=== PATIENT | female | born 1995 | race African-American/Black ===

== ENCOUNTER 2017-06-29 11:58 | Emergency (ER) | payer MEDICAID | END 2017-06-29 13:00 | disposition left against medical advice (07) | LOC: NED 11:58 | DX: R10.9 Unspecified abdominal pain (principal); N93.9 Abnormal uterine and vaginal bleeding, unspecified; Z53.21 Procedure and treatment not carried out due to patient leaving prior to being seen by health care provider | CPT/HCPCS: 99281 ==

== ENCOUNTER 2017-07-03 13:36 | Inpatient (IN) | payer MEDICAID, OTHER ==
[~2017-07-03] VITALS: Ht 162.6 cm; Wt 78.5 kg
[2017-07-03 13:44] VITALS: BP 104/59; PULSE 62; RESP 16; TEMP 98.9; O2SAT 100
[2017-07-03] MEDS ORDERED: SODIUM CHLOR 0.9% 1000 ML INJ 1,000 ML IV ONE (13:57)
--- NOTE | 2017-07-03 13:57 | PD ---
HPI Chief Complaint: Suicide Ideation/Attempt Time Seen by Provider: 13:56 Travel History International Travel<30 days: No Contact w/Intl Traveler<30days: No Traveled to known affect area: No History of Present Illness HPI 22-year-old Afro-Citizen [place] female presents the emergency department via EMS under the Luna act for reported overdose of Tylenol 500 mg. Patient reportedly took Forty 500 mg tabs at 11 AM this morning. She was found in her room somewhat obtunded. Vital signs have been stable. Patient complaining of headache. Patient's mother stated this is her second attempt at overdose. Patient has no known drug allergies. PFSH Past Medical History Medical History: Denies Significant Hx Hx Anticoagulant Therapy: No Cardiovascular Problems: No Chemotherapy: No Cerebrovascular Accident: No Diabetes: No Respiratory: No Influenza Vaccination: No ?: Not LMP: 07/03/2017 Past Surgical History Hysterectomy: No Other Surgery: Yes ( in May 2016) Social History Alcohol Use: No Tobacco Use: No Substance Use: No Allergies-Medications (Allergen,Severity, Reaction): Coded Allergies: No Known Allergies (Unverified , 07/03/17) Reported Meds & Prescriptions Reported Meds & Active Scripts Active No Active Prescriptions or Reported Medications Review of Systems Except as stated in HPI: all other systems reviewed are Neg General / Constitutional: No: Fever Eyes: No: Visual changes HENT: Positive: Headaches (patient complaining of headache.) Cardiovascular: No: Chest Pain or Discomfort Respiratory: No: Shortness of Breath Gastrointestinal: No: Abdominal Pain Genitourinary: No: Dysuria Musculoskeletal: No: Pain Skin: No Rash Neurologic: No: Weakness Psychiatric: Positive: Depression, Suicidal Ideations, No: Homicidal Ideation Endocrine: No: Polydipsia Hematologic/Lymphatic: No: Easy Bruising Physical Exam Narrative GENERAL: Patient appears in no acute distress. SKIN: Warm and dry. Normal color. Normal turgor. HEAD: Atraumatic. Normocephalic. EYES: Pupils equal and round. No scleral icterus. No injection or drainage. ENT: No nasal bleeding or discharge. Mucous membranes pink and moist. Pharynx is clear. Airway is patent. NECK: Trachea midline. Supple and nontender. CARDIOVASCULAR: Regular rate and rhythm. RESPIRATORY: No accessory muscle use. Clear to auscultation. Breath sounds equal bilaterally. GASTROINTESTINAL: Abdomen soft, non-tender, nondistended. Hepatic and splenic margins not palpable. MUSCULOSKELETAL: Extremities without clubbing, cyanosis, or edema. No obvious deformities. NEUROLOGICAL: Awake and alert. No obvious cranial nerve deficits. Motor grossly within normal limits. Five out of 5 muscle strength in the arms and legs. Normal speech. Data Data Last Documented VS Vital Signs Date Time Temp Pulse Resp B/P (MAP) Pulse Ox O2 Delivery O2 Flow Rate FiO2 07/03/17 14:27 64 15 104/59 (74) 100 Room Air 07/03/17 13:44 98.9 Orders Orders Electrocardiogram (07/03/17 ) Electrocardiogram (07/03/17 13:57) Complete Blood Count With Diff (07/03/17 13:57) Comprehensive Metabolic Panel (07/03/17 13:57) Prothrombin Time / Inr (Pt) (07/03/17 13:57) Act Partial Throm Time (Ptt) (07/03/17 13:57) Osmolality,Serum (07/03/17 13:57) Urinalysis - C+S If Indicated (07/03/17 13:57) Chest, Single Ap (07/03/17 13:57) Iv Access Insert/Monitor (07/03/17 13:57) Cath For Specimen (07/03/17 13:57) Ecg Monitoring (07/03/17 13:57) Oximetry (07/03/17 13:57) Sodium Chloride 0.9% Flush (Ns Flush) (07/03/17 14:00) Sodium Chlor 0.9% 1000 Ml Inj (Ns 1000 M (07/03/17 13:57) Call Poison Control (07/03/17 13:57) Drug Screen, Random Urine (07/03/17 13:57) Alcohol (Ethanol) (07/03/17 13:57) Salicylates (Aspirin) (07/03/17 13:57) Tylenol (Acetaminophen) (07/03/17 13:57) Ed Urine Pregnancytest Poc (07/03/17 13:57) Acetylcysteine Inj (Acetadote Inj) (07/03/17 14:15) Acetylcysteine Inj (Acetadote Inj) (07/03/17 15:15) Acetylcysteine Inj (Acetadote Inj) (07/03/17 19:15) Ondansetron Inj (Zofran Inj) (07/03/17 15:15) Beta Hcg (Quant/Titer) (07/03/17 15:36) Labs Laboratory Tests Test 07/03/17 14:06 White Blood Count 6.4 TH/MM3 Red Blood Count 4.52 MIL/MM3 Hemoglobin 11.9 GM/DL Hematocrit 36.8 % Mean Corpuscular Volume 81.5 FL Mean Corpuscular Hemoglobin 26.3 PG Mean Corpuscular Hemoglobin Concent 32.3 % Red Cell Distribution Width 14.1 % Platelet Count 272 TH/MM3 Mean Platelet Volume 8.4 FL Neutrophils (%) (Auto) 54.6 % Lymphocytes (%) (Auto) 28.1 % Monocytes (%) (Auto) 15.1 % Eosinophils (%) (Auto) 1.2 % Basophils (%) (Auto) 1.0 % Neutrophils # (Auto) 3.5 TH/MM3 Lymphocytes # (Auto) 1.8 TH/MM3 Monocytes # (Auto) 1.0 TH/MM3 Eosinophils # (Auto) 0.1 TH/MM3 Basophils # (Auto) 0.1 TH/MM3 CBC Comment DIFF FINAL Differential Comment Prothrombin Time 11.4 SEC Prothromb Time International Ratio 1.0 RATIO Activated Partial Thromboplast Time 31.5 SEC Blood Urea Nitrogen 10 MG/DL Creatinine 0.63 MG/DL Random Glucose 88 MG/DL Total Protein 6.7 GM/DL Albumin 3.4 GM/DL Calcium Level 8.2 MG/DL Alkaline Phosphatase 56 U/L Aspartate Amino Transf (AST/SGOT) 13 U/L Alanine Aminotransferase (ALT/SGPT) 13 U/L Total Bilirubin 0.4 MG/DL Sodium Level 136 MEQ/L Potassium Level 4.2 MEQ/L Chloride Level 105 MEQ/L Carbon Dioxide Level 23.9 MEQ/L Anion Gap 7 MEQ/L Estimat Glomerular Filtration Rate 144 ML/MIN Salicylates Level LESS THAN 1.7 MG/DL Acetaminophen Level 200.4 MCG/ML Ethyl Alcohol Level LESS THAN 3 MG/DL MDM Medical Decision Making Medical Screen Exam Complete: Yes Emergency Medical Condition: Yes Medical Record Reviewed: Yes Differential Diagnosis Suicidal attempt. Acetaminophen overdose. Need for psychiatric evaluation Narrative Course Patient appears medically stable at time of exam. Labs ordered including CBC, CMP, urinalysis, urine , urine tox screen, alcohol level, salicylates and acetaminophen level, serum osmolality, and arterial blood gas IV access is obtained patient is given 1000 mg normal saline bolus. Patient is started on Mucomyst IV based on her weight with a loading dose. Labs come back showing a normal CBC, normal CMP. Urine is positive although the patient states that she is currently ending her period. Serum hCG is ordered. Acetaminophen level is elevated at 200.4. Poison control has been called and agrees with the plan. 1500 hrs. call was placed to hospitalist for admission. Patient discussed with the residents who agreed to admit the patient to the ICU. Psych evaluation has been ordered. Diagnosis Primary Impression: Acetaminophen overdose Qualified Codes: T39.1X2A - Poisoning by 4-aminophenol derivatives, intentional self-harm, initial encounter Additional Impression: Suicidal deliberate poisoning Qualified Codes: T65.92XA - Toxic effect of unspecified substance, intentional self-harm, initial encounter Admitting Information Admitting Physician Requests: Admit Scripts No Active Prescriptions or Reported Meds Condition: Wesley Johnson Jul 03, 2017 13:56
[2017-07-03] MEDS ORDERED: SODIUM CHLORIDE 0.9% FLUSH 10 ML FLUSH IVF PRN (14:00)
[2017-07-03] MEDS ORDERED: DEXTROSE 5% IV SCH ×6 (14:15→19:15)
[2017-07-03] MEDS ORDERED: WATER IV SCH ×2 (14:15)
[2017-07-03] MEDS ORDERED: ACETYLCYSTEINE IV SCH ×6 (14:15→19:15)
[2017-07-03 14:25] LABS: AUTOMATED NEUTROPHIL # 3.5 TH/MM3 (1.8-7.7); BASOPHIL # 0.1 TH/MM3 (0-0.2); EOSINOPHIL # 0.1 TH/MM3 (0-0.4); EOSINOPHIL % 1.2 % (0.0-4.0); HEMATOCRIT 36.8 % (35.0-46.0); HEMO FLAGS DIFF FINAL; LYMPH % 28.1 % (9.0-44.0); LYMPHOCYTE # 1.8 TH/MM3 (1.0-4.8); MEAN CELL VOLUME 81.5 FL (80.0-100.0); MEAN CORPUSCULAR HEMOGLOBIN 26.3 PG (27.0-34.0); MEAN CORPUSCULAR HGB CONC 32.3 % (32.0-36.0); MONO % 15.1 % (0.0-8.0); NEUT % 54.6 % (16.0-70.0); PLATELET COUNT 272 TH/MM3 (150-450); RED BLOOD COUNT 4.52 MIL/MM3 (4.00-5.30); RED CELL DISTRIBUTION WIDTH 14.1 % (11.6-17.2); WHITE BLOOD COUNT 6.4 TH/MM3 (4.0-11.0)
[2017-07-03 14:27] VITALS: BP 104/59; PULSE 64; RESP 15; O2SAT 100
[2017-07-03 14:30] LABS: APTT (PATIENT) 31.5 SEC (24.3-30.1); PROTHROMBIN TIME - PATIENT 11.4 SEC (9.8-11.6)
[2017-07-03 14:40] LABS: ANION GAP 7 MEQ/L (5-15); AST (GOT) 13 U/L (15-37); BICARBONATE 23.9 MEQ/L (21.0-32.0); BLOOD UREA NITROGEN 10 MG/DL (7-18); CHLORIDE 105 MEQ/L (98-107); GLOMERULAR FILTRATION RATE 144 ML/MIN (>89); POTASSIUM 4.2 MEQ/L (3.5-5.1); SODIUM (NA) 136 MEQ/L (136-145)
[2017-07-03 14:44] LABS: ALKALINE PHOSPHATASE 56 U/L (45-117); ALT (GPT) 13 U/L (10-53); TOTAL BILIRUBIN ADULT 0.4 MG/DL (0.2-1.0)
[2017-07-03 14:50] LABS: ALCOHOL LESS THAN 3 MG/DL (0-5)
--- NOTE | 2017-07-03 14:50 | RADRPT ---
EXAM DATE/TIME: 07/03/2017 13:59 [facility] COMPARISON: No previous studies available for comparison. INDICATIONS : Evaluate lung status. Brought in for a psychological evaluation. MEDICAL HISTORY : None. SURGICAL HISTORY : None. ENCOUNTER: Initial ACUITY: 1 day PAIN SCORE: 0/10 LOCATION: Bilateral chest FINDINGS: The lungs are clear without infiltrate, nodule, or mass. There is no appreciable pleural effusion fo r technique. Heart and mediastinum are unremarkable. CONCLUSION: No acute cardiopulmonary disease. Sara Giron MD on July 03, 2017 at 14:48 Board Certified Radiologist. This report was verified electronically.
[2017-07-03 14:52] LABS: ACETAMINOPHEN 200.4 MCG/ML (10.0-30.0)
[2017-07-03] MEDS ORDERED: ONDANSETRON HCL 4 MG/2 ML VIAL IV PUSH ONE (15:15)
[2017-07-03] MEDS ORDERED: WATE IV SCH ×4 (15:15→19:15)
[2017-07-03 15:45] VITALS: BP 110/62; PULSE 70; RESP 16; O2SAT 100
[2017-07-03 16:09] LABS: BETA HCG QUANT 10531 MIU/ML (0-5)
[2017-07-03 16:12] LABS: BLOOD, URINE NEG (NEG); COMMENT (UR) CULT NOT INDICATED; CULTURE IF INDICATED CULT NOT INDICATED; GLUCOSE,URINE NEG (NEG); KETONE, URINE 40 mg/dL (NEG); NITRITE,URINE NEG (NEG); SQUAMOUS EPITHELIAL CELL URINE <1 /hpf (0-5); URINE COLOR LIGHT-YELLOW (YELLW/STRAW)
--- NOTE | 2017-07-03 16:17 | HHI.HP ---
[facility] Service Family Medicine Primary Care Physician No Primary Care Physician Admission Diagnosis Tylenol Overdose/Suicidal Diagnoses: International Travel<30 Days: No Contact w/Intl Traveler<30days: No Known Affected Area: No History of Present Illness 22 year old female presents to the emergency department after taking two full bottles of (she believes) Tylenol Extra Strength at 11 AM this morning. She states the pills in one bottle were red and blue. She states she is pretty sure at least one bottle was Tylenol Extra Strength and that it was 40# of 500 mg pills. Her intent was to kill herself. The provoking event was an argument with her mother followed by an argument with her baby's father. This is her second suicide attempt, with the first being a week ago when she took 10 Tylenol pills. Her mother found her down with the empty bottles. She reports feeling depressed lately and states "I've just been going through too much". Of note, urine test in the ED is positive. HCG quant is currently pending. Bedside ultrasound is pending. Her last baby is 4 months old, so deductively she would be less than 4 months. She is currently having vaginal bleeding, the amount of a period. She is uncertain if she is passing tissue or clots. Her LMP before that was May first by her report. She is a with an elective 1 year ago. Her only symptoms currently is nausea, vomiting, and headache. She also has lower abdominal crampy pain. She has no blurry vision, shortness of breath, chest pain, palpitations, or leg swelling. (Montrell Carr MD R3) Review of Systems Constitutional: DENIES: Diaphoretic episodes, Fatigue, Weight gain, Weight loss , Chills, Dizziness, Change in appetite Endocrine: COMPLAINS OF: Abnorml menstrual pattern, DENIES: Heat/cold intolerance, Polyuria, Polyphagia Eyes: DENIES: Eye pain, Double Vision Ears, nose, mouth, throat: DENIES: Hearing loss, Nasal discharge, Oral lesions , Throat pain, Ear Pain Respiratory: DENIES: Cough, Wheezing, Sputum production, Shortness of breath Cardiovascular: DENIES: Chest pain, Palpitations, Dyspnea on Exertion, Lower Extremity Edema Gastrointestinal: COMPLAINS OF: Abdominal pain, Nausea, Vomiting, DENIES: Black stools, Bloody stools, Constipation, Diarrhea Genitourinary: COMPLAINS OF: Abnormal vaginal bleeding, DENIES: Dysmenorrhea, Urinary frequency, Hematuria, Dysuria Musculoskeletal: DENIES: Joint pain Hematologic/lymphatic: DENIES: Lymphadenopathy Immunologic/allergic: DENIES: Eczema Neurologic: COMPLAINS OF: Headache, DENIES: Seizures, Speech Problems, Tremor, Poor Balance Psychiatric: COMPLAINS OF: Mood changes, Depression, Suicidal Ideation, DENIES : Anxiety, Confusion, Hallucinations, Agitation, Homicidal Ideation (Montrell Carr MD R3) Past Family Social History Past Medical History None significant medical history OB history: One elective one year ago 2nd : term vaginal delivery, 4 months old currently Had chlamydia during her last that was treated Her delivery was at [facility] Currently monogamous with baby's father Does not use condoms Past Surgical History Elective 1 year ago Reported Medications Reported Meds & Active Scripts Active No Active Prescriptions or Reported Medications (Montrell Carr MD R3) Allergies: Coded Allergies: No Known Allergies (Unverified , 07/03/17) Active Ordered Medications Inpatient Medications Acetylcysteine 3300 mg/Dextrose 516.5 ml @ 125 mls/hr ONCE IV ; Start 07/03/17 at 15:15; Stop 07/03/17 at 19:14 Acetylcysteine 6600 mg/Dextrose 1,033 ml @ 62.5 mls/hr ONCE IV ; Start at 19:15; Stop 07/04/17 at 11:14 Acetylcysteine 9900 mg/Dextrose 249.5 ml @ 200 mls/hr ONCE IV Last administered on 07/03/17 14:51; Start 07/03/17 at 14:15; Stop 07/03/17 at 15:14 ; Status DC Ondansetron HCl (Zofran Inj) 4 mg ONCE ONCE IV PUSH Last administered on 15:17; Start 07/03/17 at 15:15; Stop 07/03/17 at 15:16; Status DC Sodium Chloride 1,000 ml @ 1,000 mls/hr Q1H ONCE IV Last administered on 14:28; Start 07/03/17 at 13:57; Stop 07/03/17 at 14:56; Status DC Sodium Chloride (NS Flush) 2 ml UNSCH PRN IVF FLUSH AFTER USING IV ACCESS; Start 07/03/17 at 14:00 Family History None significant reported Social History Drinks alcohol, one to two cups of Patron on social occasions Non-smoker No other drug use reported Lives alone with her baby Works at [employer] sophomore year of [employer] (Montrell Carr MD R3) Physical Exam Vital Signs Vital Signs Date Time Temp Pulse Resp B/P (MAP) Pulse Ox O2 Delivery O2 Flow Rate FiO2 07/03/17 15:45 70 16 110/62 (78) 100 Room Air 07/03/17 14:27 64 15 104/59 (74) 100 Room Air 07/03/17 13:44 98.9 62 16 104/59 (74) 100 Physical Exam GENERAL: Lying in bed, responding to questions appropriately, vomited twice during exam HEENT: Normocephalic, no conjunctivitis, no nasal discharge, normal pharynx NECK: Trachea midline. No JVD or lymphadenopathy. Supple, nontender, no meningeal signs. CARDIOVASCULAR: Regular rate and rhythm without murmurs, gallops, or rubs. Normal pulses peripherally. RESPIRATORY: Clear to auscultation. Breath sounds equal bilaterally. No wheezes , rales, or rhonchi. GASTROINTESTINAL: Cannot palpate uterine fundus, mild pain with palpation of the lower abdomen, no rebound or guarding, normal bowel sounds MUSCULOSKELETAL: Extremities without clubbing, cyanosis, or edema. No joint tenderness, effusion, or edema noted. No calf tenderness. NEUROLOGICAL: Awake and alert. Cranial nerves II through XII intact. Motor and sensory grossly within normal limits. Five out of 5 muscle strength in all muscle groups. Normal speech. Laboratory Laboratory Tests Test 07/03/17 14:06 07/03/17 15:30 White Blood Count 6.4 Red Blood Count 4.52 Hemoglobin 11.9 Hematocrit 36.8 Mean Corpuscular Volume 81.5 Mean Corpuscular Hemoglobin 26.3 Mean Corpuscular Hemoglobin Concent 32.3 Red Cell Distribution Width 14.1 Platelet Count 272 Mean Platelet Volume 8.4 Neutrophils (%) (Auto) 54.6 Lymphocytes (%) (Auto) 28.1 Monocytes (%) (Auto) 15.1 Eosinophils (%) (Auto) 1.2 Basophils (%) (Auto) 1.0 Neutrophils # (Auto) 3.5 Lymphocytes # (Auto) 1.8 Monocytes # (Auto) 1.0 Eosinophils # (Auto) 0.1 Basophils # (Auto) 0.1 CBC Comment DIFF FINAL Differential Comment Prothrombin Time 11.4 Prothromb Time International Ratio 1.0 Activated Partial Thromboplast Time 31.5 Blood Urea Nitrogen 10 Creatinine 0.63 Random Glucose 88 Total Protein 6.7 Albumin 3.4 Calcium Level 8.2 Alkaline Phosphatase 56 Aspartate Amino Transf (AST/SGOT) 13 Alanine Aminotransferase (ALT/SGPT) 13 Total Bilirubin 0.4 Sodium Level 136 Potassium Level 4.2 Chloride Level 105 Carbon Dioxide Level 23.9 Anion Gap 7 Estimat Glomerular Filtration Rate 144 Salicylates Level LESS THAN 1.7 Acetaminophen Level 200.4 Ethyl Alcohol Level LESS THAN 3 (Montrell Carr MD R3) Result Diagram: 07/03/17 1406 07/03/17 1406 Imaging Last 72 hours Impressions Chest X-Ray 07/03/17 1357 Signed Impressions: Service Date/Time: June 13:59 - CONCLUSION: No acute cardiopulmonary disease. Sara Giron MD (Montrell Carr MD R3) Septic Shock Reassessment Heart: Regular rate and rhythm Lungs: Clear Skin: Warm Capillary Refill: <2 seconds (Montrell Carr MD R3) Caprini VTE Risk Assessment Caprini VTE Risk Assessment: Mod/High Risk (score >= 2) Caprini Risk Assessment Model Point Value = 1 Point Value = 2 Point Value = 3 Point Value = 5 Age 41-60 Minor surgery BMI > 25 kg/m2 Swollen legs Varicose veins or History of unexplained or recurrent spontaneous Oral contraceptives or hormone replacement Sepsis (< 1 month) Serious lung disease, including pneumonia (< 1 month) Abnormal pulmonary function Acute myocardial infarction Congestive heart failure (< 1 month) History of inflammatory bowel disease Medical patient at bed rest Age 61-74 Arthroscopic surgery Major open surgery (> 45 min) Laparoscopic surgery (> 45 min) Malignancy Confined to bed (> 72 hours) Immobilizing plaster cast Central venous access Age >= 75 History of VTE Family history of VTE Factor V Leiden Prothrombin [id number] Lupus anticoagulant Anticardiolipin antibodies Elevated serum homocysteine Heparin-induced thrombocytopenia Other congenital or acquired thrombophilia Stroke (< 1 month) Elective arthroplasty Hip, pelvis, or leg fracture Acute spinal cord injury (< 1 month) Prophylaxis Regimen Total Risk Factor Score Risk Level Prophylaxis Regimen 0-1 Low Early ambulation 2 Moderate Order ONE of the following: *Sequential Compression Device (SCD) *Heparin 5000 units SQ BID 3-4 Higher Order ONE of the following medications: *Heparin 5000 units SQ TID *Enoxaparin/Lovenox 40 mg SQ daily (WT < 150 kg, CrCl > 30 mL/min) *Enoxaparin/Lovenox 30 mg SQ daily (WT < 150 kg, CrCl > 10-29 mL/min) *Enoxaparin/Lovenox 30 mg SQ BID (WT < 150 kg, CrCl > 30 mL/min) AND/OR *Sequential Compression Device (SCD) 5 or more Highest Order ONE of the following medications: *Heparin 5000 units SQ TID (Preferred with Epidurals) *Enoxaparin/Lovenox 40 mg SQ daily (WT < 150 kg, CrCl > 30 mL/min) *Enoxaparin/Lovenox 30 mg SQ daily (WT < 150 kg, CrCl > 10-29 mL/min) *Enoxaparin/Lovenox 30 mg SQ BID (WT < 150 kg, CrCl > 30 mL/min) AND *Sequential Compression Device (SCD) (Montrell Carr MD R3) Assessment and Plan Assessment and Plan 22 year old presents after suicidal attempt after taking two bottles of acetaminophen Code Status FULL CODE Discussed Condition With Seen and discussed with Dr. Matos Discussed with Dr. Zamorano (Montrell Carr MD R3) Attending Attestation The patient has been seen and examined. The chart and all resident notes have been reviewed. I agree that inpatient care is appropriate and that a two midnight stay is expected for the reasons documented in the resident history and physical. I have discussed this with the resident and certify the resident s order for inpatient admission. Patient seen and examined. Case reviewed and discussed with the resident team Please refer to resident H&P for further details regarding HPI, ROS, PMH, SurgHx , Fh and SocHx In summary, patient is a 22yoF who was brought to the ED after her mother called 911 Patient's mother had found her down after an attempted suicide taking 40 tablets of 500mg Tylenol She is seen in the ED, poison control has been contacted N-acetylcysteine protocol initiated GENERAL: wdwn female, lying curled up in bed SKIN: Warm and dry. NO rashes HEAD: Normocephalic. AT EYES: No scleral icterus. No injection or drainage. NECK: Supple, trachea midline. No JVD or lymphadenopathy. CARDIOVASCULAR: Regular rate and rhythm without murmurs, gallops, or rubs. RESPIRATORY: Breath sounds equal bilaterally. No accessory muscle use. GASTROINTESTINAL: Abdomen soft, non-tender, nondistended. MUSCULOSKELETAL: No cyanosis, or edema. No calf tenderness BACK: Nontender without obvious deformity. No CVA tenderness. A/P: 22yoF admitted with: Acetaminophen OD Suicide attempt Post- 4 months N-acetylcysteine protocol Direction per Poison control Telemetry ICU monitoring Coags, LFTs, acetaminophen serially UDS IVF Psych consult [employer] consult Trend hcg Patient seen and examined. Case reviewed and discussed Agree with plan of care as discussed with me and documented in the resident note. (Aubree Zamorano MD) Problem List: (1) Acetaminophen overdose ICD Codes: T39.1X1A - Poisoning by 4-Aminophenol derivatives, accidental ( unintentional), initial encounter Status: Acute Plan: Patient took two bottles of extra strength Tylenol that occurred at 11 AM today, also took 10 acetaminophen a week ago, both times with suicidal intent. Liver enzymes currently normal. - Discussed with poison control, the plan is as follows: - Will place in ICU for closer monitoring with telemetry - IV N-acetylcysteine protocol. At end of protocol, will repeat coag panel, liver enzymes, acetaminophen level. Will need to repeat the 16 hour N- acetylcysteine dose if these are abnormal at that time. - Psych/OB drug screen pending, so far negative. - Will call poison control again tomorrow. - Zofran for nausea and vomiting - See below for further plans regarding suicidality and psychiatric issues. (2) ICD Codes: Z34.90 - Encounter for supervision of normal , unspecified , unspecified trimester Plan: Urine test positive with HCG quant of 10,531. Bedside transvaginal ultrasound showing gestational sac but with no pole, which is concerning for spontaneous . Also with active vaginal bleeding for one week. She is uncertain about passing tissue or clots. Currently with no fevers and with stable vital signs. - Consult OB, spoke with Dr. Mathews, plan as follows. - Serial quant HCG's to determine trend. If precipitously dropping, suggests . If rising, suggests viable . If remaining the same, need to rule out ectopic or trophoblastic disease. - If spontaneous , option between medication versus surgical versus expectant management. (3) Suicidal deliberate poisoning ICD Codes: T65.92XA - Toxic effect of unspecified substance, intentional self- harm, initial encounter Status: Acute Plan: Second suicide attempt within a week period with Tylenol overdose each time. Has significant depression recently, and having arguments with her mother and her baby's father. - Consult psychiatry - Currently under [place] Act - Case management consult for outpatient treatment options - Would benefit from crisis center at discharge. - 1:1 sitter (4) No contraindication to deep vein thrombosis (DVT) prophylaxis ICD Codes: Z78.9 - Other specified health status Status: Acute Plan: Heparin prophylactically, 5000 units bid. (5) Nutrition, metabolism, and development symptoms ICD Codes: R63.8 - Other symptoms and signs concerning food and fluid intake Status: Acute Plan: IV normal saline at maintenance Regular diet Electrolytes currently normal, monitor (Montrell Carr MD R3) Physician Certification 2 Midnight Certification Type: Admission for Inpatient Services Order for Inpatient Services The services are ordered in accordance with Medicare regulations or non- Medicare payer requirements, as applicable. In the case of services not specified as inpatient-only, they are appropriately provided as inpatient services in accordance with the 2-midnight benchmark. Estimated LOS (days): 3 days is the estimated time the patient will need to remain in the hospital, assuming treatment plan goals are met and no additional complications. Post-Hospital Plan: Home (Montrell Carr MD R3) Problem Qualifiers (1) Acetaminophen overdose: Qualified Codes: T39.1X2A - Poisoning by 4-aminophenol derivatives, intentional self-harm, initial encounter (2) : Qualified Codes: Z3A.01 - Less than 8 weeks gestation of (3) Suicidal deliberate poisoning: Qualified Codes: T65.92XA - Toxic effect of unspecified substance, intentional self-harm, initial encounter Montrell Carr MD R3 Jul 03, 2017 16:17 Aubree Zamorano MD Jul 03, 2017 21:16
[2017-07-03] MEDS ORDERED: SODIUM CHLORIDE 0.9% FLUSH 10 ML FLUSH IV FLUSH PRN (16:45)
[2017-07-03] MEDS ORDERED: ONDANSETRON HCL 4 MG/2 ML VIAL IVP PRN (16:45)
[2017-07-03] MEDS ORDERED: BISACODYL 10 MG SUPP RECTAL PRN (16:45)
[2017-07-03] MEDS ORDERED: NALOXONE HCL 0.4 MG/ML AMP IV PRN (16:45)
[2017-07-03] MEDS ORDERED: LACTULOSE SYRUP 20 GM/30 ML CUP PO PRN (16:45)
[2017-07-03] MEDS ORDERED: SENNOSIDES 8.6 MG TAB PO PRN (16:45)
[2017-07-03] MEDS ORDERED: MAGNESIUM HYDROXIDE SUSP 30 ML CUP PO PRN (16:45)
--- NOTE | 2017-07-03 17:21 | PD ---
Data Data Last Documented VS Vital Signs Date Time Temp Pulse Resp B/P (MAP) Pulse Ox O2 Delivery O2 Flow Rate FiO2 07/03/17 14:27 64 15 104/59 (74) 100 Room Air 07/03/17 13:44 98.9 Orders Orders Electrocardiogram (07/03/17 ) Complete Blood Count With Diff (07/03/17 13:57) Comprehensive Metabolic Panel (07/03/17 13:57) Prothrombin Time / Inr (Pt) (07/03/17 13:57) Act Partial Throm Time (Ptt) (07/03/17 13:57) Osmolality,Serum (07/03/17 13:57) Urinalysis - C+S If Indicated (07/03/17 13:57) Chest, Single Ap (07/03/17 13:57) Iv Access Insert/Monitor (07/03/17 13:57) Cath For Specimen (07/03/17 13:57) Ecg Monitoring (07/03/17 13:57) Oximetry (07/03/17 13:57) Sodium Chloride 0.9% Flush (Ns Flush) (07/03/17 14:00) Sodium Chlor 0.9% 1000 Ml Inj (Ns 1000 M (07/03/17 13:57) Call Poison Control (07/03/17 13:57) Alcohol (Ethanol) (07/03/17 13:57) Salicylates (Aspirin) (07/03/17 13:57) Tylenol (Acetaminophen) (07/03/17 13:57) Ed Urine Pregnancytest Poc (07/03/17 13:57) Acetylcysteine Inj (Acetadote Inj) (07/03/17 14:15) Acetylcysteine Inj (Acetadote Inj) (07/03/17 15:15) Acetylcysteine Inj (Acetadote Inj) (07/03/17 19:15) Ondansetron Inj (Zofran Inj) (07/03/17 15:15) Beta Hcg (Quant/Titer) (07/03/17 15:36) Admit Order (Ed Use Only) (07/03/17 15:40) Labs Laboratory Tests Test 07/03/17 14:06 07/03/17 15:30 White Blood Count 6.4 TH/MM3 Red Blood Count 4.52 MIL/MM3 Hemoglobin 11.9 GM/DL Hematocrit 36.8 % Mean Corpuscular Volume 81.5 FL Mean Corpuscular Hemoglobin 26.3 PG Mean Corpuscular Hemoglobin Concent 32.3 % Red Cell Distribution Width 14.1 % Platelet Count 272 TH/MM3 Mean Platelet Volume 8.4 FL Neutrophils (%) (Auto) 54.6 % Lymphocytes (%) (Auto) 28.1 % Monocytes (%) (Auto) 15.1 % Eosinophils (%) (Auto) 1.2 % Basophils (%) (Auto) 1.0 % Neutrophils # (Auto) 3.5 TH/MM3 Lymphocytes # (Auto) 1.8 TH/MM3 Monocytes # (Auto) 1.0 TH/MM3 Eosinophils # (Auto) 0.1 TH/MM3 Basophils # (Auto) 0.1 TH/MM3 CBC Comment DIFF FINAL Differential Comment Prothrombin Time 11.4 SEC Prothromb Time International Ratio 1.0 RATIO Activated Partial Thromboplast Time 31.5 SEC Blood Urea Nitrogen 10 MG/DL Creatinine 0.63 MG/DL Random Glucose 88 MG/DL Total Protein 6.7 GM/DL Albumin 3.4 GM/DL Calcium Level 8.2 MG/DL Alkaline Phosphatase 56 U/L Aspartate Amino Transf (AST/SGOT) 13 U/L Alanine Aminotransferase (ALT/SGPT) 13 U/L Total Bilirubin 0.4 MG/DL Sodium Level 136 MEQ/L Potassium Level 4.2 MEQ/L Chloride Level 105 MEQ/L Carbon Dioxide Level 23.9 MEQ/L Anion Gap 7 MEQ/L Estimat Glomerular Filtration Rate 144 ML/MIN Serum Osmolality 288 MOSM/KG Human Chorionic Gonadotropin, Quant 61262 MIU/ML Salicylates Level LESS THAN 1.7 MG/DL Acetaminophen Level 200.4 MCG/ML Ethyl Alcohol Level LESS THAN 3 MG/DL Urine Color LIGHT-YELLOW Urine Turbidity CLEAR Urine pH 7.0 Urine Specific [place] 1.022 Urine Protein NEG mg/dL Urine Glucose (UA) NEG mg/dL Urine Ketones 40 mg/dL Urine Occult Blood NEG Urine Nitrite NEG Urine Bilirubin NEG Urine Urobilinogen LESS THAN 2.0 MG/DL Urine Leukocyte Esterase NEG Urine RBC LESS THAN 1 /hpf Urine Squamous Epithelial Cells <1 /hpf Microscopic Urinalysis Comment CULT NOT INDICATED Urine Opiates Screen NEG Urine Barbiturates Screen NEG Urine Amphetamines Screen NEG Urine Benzodiazepines Screen NEG Urine Cocaine Screen NEG Urine Cannabinoids Screen NEG MDM Supervised Visit with REZA: Yes Narrative Course The history, exam, and medical decision-making in the associated midlevel provider note were completed with my assistance. I reviewed and agree with the findings presented. I attest that I had a [id number] encounter with the patient on the same day, and personally performed and documented my assessment and findings in the medical record. *My assessment and Findings: This is a 22-year-old female who presents to the emergency department having ingested 40 tablets of 500 milligram acetaminophen. Her Tylenol level was 200. She was started empirically on N-acetylcysteine upon arrival. She will be admitted for continued antidote treatment. Diagnosis Primary Impression: Acetaminophen overdose Qualified Codes: T39.1X2A - Poisoning by 4-aminophenol derivatives, intentional self-harm, initial encounter Additional Impression: Suicidal deliberate poisoning Qualified Codes: T65.92XA - Toxic effect of unspecified substance, intentional self-harm, initial encounter Scripts No Active Prescriptions or Reported Meds Condition: Gena Booth MD Jul 03, 2017 17:21
[2017-07-03 17:22] VITALS: BP 18/67; PULSE 74; RESP 16; O2SAT 97
--- NOTE | 2017-07-03 17:45 | RADRPT ---
EXAM DATE/TIME: 07/03/2017 16:21 [place] COMPARISON: No previous studies available for comparison. INDICATIONS : Dating. LAB(S): Beta-hC MEDICAL HISTORY : . Overdose. SURGICAL HISTORY : . ENCOUNTER: Initial ACUITY: 1 day PAIN SCORE: 4/10 LOCATION: Bilateral pelvis MEASUREMENTS: UTERUS: 8.2 x 5.7 x 4.0 cm ENDOMETRIAL STRIPE: 12 mm RIGHT OVARY: 2.3 x 2.0 x 1.3 cm LEFT OVARY: 2.3 x 2.3 x 2.0 cm FREE FLUID: No FINDINGS: Intrauterine gestational sac is present measuring 1.2 cm (5 weeks and 3 days). pole and yolk sa c are not present. There is no free fluid or adnexal mass. CONCLUSION: Early IUP and follow up is suggested for viability. Sara Giron MD on July 03, 2017 at 17:39 Board Certified Radiologist. This report was verified electronically.
[2017-07-03] MEDS: SODIUM CHLOR 0.9% 1000 ML INJ 1,000 ML IV SCH (17:58)
[2017-07-03] MEDS: HEPARIN SODIUM - SQ 10,000 UNITS/ML VIAL SQ SCH (17:58)
--- NOTE | 2017-07-03 18:36 | PD.CONS ---
HPI Chief Complaint Pt admitted with tylenol overdose. OBGYN Consult for vaginal bleeding 4 days Date Seen: Jul 03, 2017 Time Seen: 18:00 Travel History International Travel<30 Days: No Contact w/Intl Traveler<30Days: No Known Affected Area: No History of Present Illness HPI Pt is a 22 yo who was seen in ED after admitting Tylenol overdose. Pt reported vaginal bleeding past 4 days. Light. Pt thought bleeding was period. LMP was 06-09-2017, states menses normally regular. Denies any abdominal pain. No fevers or chills. Para: 0 : 1 Last Menstrual Period: Jun 09, 2017 History Past Medical History Narrative Medical Depression Past Surgical History Surgical History: No Previous Surgery Family History Family History: Negative Social History Alcohol Use: No Tobacco Use: No Substance Abuse: No Allergies-Medications (Allergen,Severity, Reaction): Coded Allergies: No Known Allergies (Unverified , 07/03/17) Home Meds No Active Prescriptions or Reported Meds Review of Systems Except as stated in HPI: all other systems reviewed are Neg Physical Exam Vital Signs Date Time Temp Pulse Resp B/P (MAP) Pulse Ox O2 Delivery O2 Flow Rate FiO2 07/03/17 17:22 74 16 18/67 (51) 97 Room Air 07/03/17 17:01 21 07/03/17 15:45 70 16 110/62 (78) 100 Room Air 07/03/17 14:27 64 15 104/59 (74) 100 Room Air 07/03/17 13:44 98.9 62 16 104/59 (74) 100 Narrative GENERAL: Well-nourished, well-developed patient. SKIN: Warm and dry. HEAD: Normocephalic and atraumatic. EYES: No scleral icterus. No injection or drainage. ENT: No nasal drainage noted. Mucous membranes pink. Airway patent. NECK: Supple, trachea midline. No JVD. CARDIOVASCULAR: Regular rate and rhythm without murmurs, gallops, or rubs. RESPIRATORY: Breath sounds equal bilaterally. No accessory muscle use. BREASTS: Bilateral exam showed no masses , no retractions, no nipple discharge. ABDOMEN/GI: Abdomen soft, non-tender, bowel sounds present, no rebound, no guarding Gravid to [-] weeks size Fundal Height: [-] GENITOURINARY: External Genitalia: intact and normal in appearance BUS glands: [-] Cervix: [firm-] Dilatation: [closed] Effacement: [uneffaced] Station: [] Presentation: [] Membranes: [intact or ruptured] Uterine Contractions: [ MINIMAL BLOOD NOTED WITH EXAM] FHT's: Category: [-] Baseline: [-] Reactive: [-] Variability: [-] Decels: [-] EXTREMITIES: No cyanosis or edema. BACK: Nontender without obvious deformity. No CVA tenderness. NEUROLOGICAL: Awake and alert. Motor and sensory grossly within normal limits. Five out of 5 muscle strength in all muscle groups. Normal speech. Data Data Vital Signs Reviewed: Yes Orders Orders Electrocardiogram (07/03/17 ) Complete Blood Count With Diff (07/03/17 13:57) Comprehensive Metabolic Panel (07/03/17 13:57) Prothrombin Time / Inr (Pt) (07/03/17 13:57) Act Partial Throm Time (Ptt) (07/03/17 13:57) Osmolality,Serum (07/03/17 13:57) Urinalysis - C+S If Indicated (07/03/17 13:57) Chest, Single Ap (07/03/17 13:57) Iv Access Insert/Monitor (07/03/17 13:57) Cath For Specimen (07/03/17 13:57) Ecg Monitoring (07/03/17 13:57) Oximetry (07/03/17 13:57) Sodium Chloride 0.9% Flush (Ns Flush) (07/03/17 14:00) Sodium Chlor 0.9% 1000 Ml Inj (Ns 1000 M (07/03/17 13:57) Call Poison Control (07/03/17 13:57) Alcohol (Ethanol) (07/03/17 13:57) Salicylates (Aspirin) (07/03/17 13:57) Tylenol (Acetaminophen) (07/03/17 13:57) Ed Urine Pregnancytest Poc (07/03/17 13:57) Acetylcysteine Inj (Acetadote Inj) (07/03/17 14:15) Acetylcysteine Inj (Acetadote Inj) (07/03/17 15:15) Acetylcysteine Inj (Acetadote Inj) (07/03/17 19:15) Ondansetron Inj (Zofran Inj) (07/03/17 15:15) Beta Hcg (Quant/Titer) (07/03/17 15:36) Admit Order (Ed Use Only) (07/03/17 15:40) (Hub Use Only)Inp Phy Cons/Ref (07/03/17 ) Us Pelvis Preg W Transvaginal (07/03/17 ) Ob/Psych Drug Screen, Urine (07/03/17 15:56) ^ Sitter (07/03/17 15:56) Ur Bath Salts (07/03/17 15:30) Ur Heroin (07/03/17 15:30) Ur K2 Spice (07/03/17 15:30) Ur Ecstasy (07/03/17 15:30) Phencyclidine Urine (Pcp) (07/03/17 15:30) Admit To Inpatient (07/03/17 ) Code Status (07/03/17 16:36) Vital Signs (Adult) Q4H (07/03/17 16:36) Neuro Checks Q4H (07/03/17 16:36) Activity Oob Ad Lili (07/03/17 16:36) Refund Specialist / Telemetry .CONTINUOUS (07/03/17 16:36) Intake + Output MILAGROS.QSHIFT (07/03/17 16:36) Diet Npo (07/03/17 Dinner) Sodium Chlor 0.9% 1000 Ml Inj (Ns 1000 M (07/03/17 16:36) Sodium Chloride 0.9% Flush (Ns Flush) (07/03/17 16:45) Sodium Chloride 0.9% Flush (Ns Flush) (07/03/17 21:00) Ondansetron Inj (Zofran Inj) (07/03/17 16:45) Complete Blood Count With Diff (07/04/17 06:00) Prothrombin Time / Inr (Pt) (07/04/17 06:00) Resp Oxygen Tate C Titrat 1-4 L (07/03/17 ) Case Management Consult (07/03/17 16:36) Heparin Inj (Heparin Inj) (07/03/17 17:00) Naloxone Inj (Narcan Inj) (07/03/17 16:45) Docusate Sodium-Senna (Adilia-Colace) (07/03/17 21:00) Magnesium Hydroxide Liq (Milk Of Magnesi (07/03/17 16:45) Sennosides (Senokot) (07/03/17 16:45) Bisacodyl Supp (Dulcolax Supp) (07/03/17 16:45) Lactulose Liq (Lactulose Liq) (07/03/17 16:45) Inpatient Certification (07/03/17 ) Comprehensive Metabolic Panel (07/04/17 06:00) Consult Psychiatry (07/03/17 ) ^ Sitter (07/03/17 16:58) Consult Obstetrics (07/03/17 ) Patient Transfer (07/03/17 ) (Hub Use Only)Inp Phy Cons/Ref (07/03/17 ) (Hub Use Only)Inp Phy Cons/Ref (07/03/17 ) Beta Hcg (Quant/Titer) (07/04/17 06:00) Tylenol (Acetaminophen) (07/04/17 06:00) Tylenol (Acetaminophen) (07/03/17 18:05) Comprehensive Metabolic Panel (07/03/17 18:05) Labs Laboratory Tests Test 07/03/17 14:06 07/03/17 15:30 White Blood Count 6.4 Red Blood Count 4.52 Hemoglobin 11.9 Hematocrit 36.8 Mean Corpuscular Volume 81.5 Mean Corpuscular Hemoglobin 26.3 Mean Corpuscular Hemoglobin Concent 32.3 Red Cell Distribution Width 14.1 Platelet Count 272 Mean Platelet Volume 8.4 Neutrophils (%) (Auto) 54.6 Lymphocytes (%) (Auto) 28.1 Monocytes (%) (Auto) 15.1 Eosinophils (%) (Auto) 1.2 Basophils (%) (Auto) 1.0 Neutrophils # (Auto) 3.5 Lymphocytes # (Auto) 1.8 Monocytes # (Auto) 1.0 Eosinophils # (Auto) 0.1 Basophils # (Auto) 0.1 CBC Comment DIFF FINAL Differential Comment Prothrombin Time 11.4 Prothromb Time International Ratio 1.0 Activated Partial Thromboplast Time 31.5 Blood Urea Nitrogen 10 Creatinine 0.63 Random Glucose 88 Total Protein 6.7 Albumin 3.4 Calcium Level 8.2 Alkaline Phosphatase 56 Aspartate Amino Transf (AST/SGOT) 13 Alanine Aminotransferase (ALT/SGPT) 13 Total Bilirubin 0.4 Sodium Level 136 Potassium Level 4.2 Chloride Level 105 Carbon Dioxide Level 23.9 Anion Gap 7 Estimat Glomerular Filtration Rate 144 Serum Osmolality 288 Human Chorionic Gonadotropin, Quant 78154 Salicylates Level LESS THAN 1.7 Acetaminophen Level 200.4 Ethyl Alcohol Level LESS THAN 3 Urine Color LIGHT-YELLOW Urine Turbidity CLEAR Urine pH 7.0 Urine Specific [place] 1.022 Urine Protein NEG Urine Glucose (UA) NEG Urine Ketones 40 Urine Occult Blood NEG Urine Nitrite NEG Urine Bilirubin NEG Urine Urobilinogen LESS THAN 2.0 Urine Leukocyte Esterase NEG Urine RBC LESS THAN 1 Urine Squamous Epithelial Cells <1 Microscopic Urinalysis Comment CULT NOT INDICATED Urine Opiates Screen NEG Urine Barbiturates Screen NEG Urine Amphetamines Screen NEG Urine Benzodiazepines Screen NEG Urine Cocaine Screen NEG Urine Cannabinoids Screen NEG MDM Medical Record Reviewed: Yes Interpretation(s) Admitted with Tylenol overdose. Incidental finding of amenorrhea ,positive test with mild vaginal bleeding No pelvic pain. Hg 11.9, with normal WCC at 6.4. Quant hCG 10,000+ Will alaina final US report, but verbal report suggests 5 weeks size empty gestation sac. Plan FU Quant hCG Early IUP vrs miscarriage ( blighted ovum) Will need to r/o ectopic. Will follow. Admitting diagnosis: Tylenol Overdose/Suicidal CoMorbid Conditions Amenorrhea with positive test with scant vaginal bleed. Early IUP vrs Blighted ovum Condition: Stable Scripts No Active Prescriptions or Reported Meds Glenroy Mathews MD Jul 03, 2017 18:36
[2017-07-03 20:00] VITALS: BP 119/71; PULSE 64; RESP 17; TEMP 98.4; O2SAT 100
[2017-07-03] MEDS: DOCUSATE SODIUM 50 MG/SENNA 8.6 MG TAB PO SCH (20:43)
[2017-07-03] MEDS: SODIUM CHLORIDE 0.9% FLUSH 10 ML FLUSH IV FLUSH SCH (20:43)
[2017-07-03] MEDS ORDERED: CHLORHEXIDINE GLUCONATE 2 % 1 PACK (2 CLOTHS)(extra cloths) TOPICAL PRN (21:30)
[2017-07-03 21:39] LABS: ALT (GPT) 22 U/L (10-53); ANION GAP 11 MEQ/L (5-15); AST (GOT) 10 U/L (15-37); BICARBONATE 19.7 MEQ/L (21.0-32.0); CHLORIDE 105 MEQ/L (98-107); GLOMERULAR FILTRATION RATE 165 ML/MIN (>89); POTASSIUM 3.7 MEQ/L (3.5-5.1); SODIUM (NA) 136 MEQ/L (136-145)
[2017-07-03 21:42] LABS: ACETAMINOPHEN 101.8 MCG/ML (10.0-30.0); ALKALINE PHOSPHATASE 56 U/L (45-117); TOTAL BILIRUBIN ADULT 0.5 MG/DL (0.2-1.0)
[2017-07-03 21:59] LABS: BLOOD UREA NITROGEN 6 MG/DL (7-18)
[2017-07-03 22:00] VITALS: PULSE 59
--- NOTE | 2017-07-03 22:49 | HHI.FPPN ---
Addendum to progress note ADDENDUM Reason for addendum: Additonal documentation Additional information Re-evaluated patient this evening with mom and dad in the room. Patient gave us permission to discuss issues with her parents. Patient is feeling much better compared to in the ED. She is sitting up in bed, smiling, and interactive. She has a good appetite. Headache, nausea, vomiting, and abdominal pain are now gone. Her vital signs are normal currently. Discussed plan with parents and patient at length and clarified medications taken. According to patient she is pretty certain that she took Tylenol PM (diphenhydramine/Tylenol combination) and Extra Strength Tylenol. There were 24 pills in each bottle and she took all but about 10 of them, amounting to about 40 total pills. Mom and dad at bedside are very concerned for her and mention that she has been on a downhill trend with her moods and suicide attempts since having her most recent baby 4 months ago. Before that time parents state that she did not have any mood disorders or suicidal ideation/attempts. They are concerned for possible post- depression. Patient discussed her plans for the future, including continuing to pursue a college education, and states that she does want help. Vitals: Stable, 97% on room air, no fevers Physical Exam: General: Sitting up, alert, interactive, smiling, much better than earlier Skin: No rashes or lesions that are obvious CV: RRR, no murmur, rubs, or gallops, normal pulses Lungs: CTAB Abdomen: Soft, nontender, nondistended Ext: No pain or swelling Labs: AST: 10 ALT: 22 Electrolytes: stable Acetaminophen: 100, down from 200 Assessment: Viable versus spontaneous versus trophoblastic disease. Toxic ingestion with at least acetaminophen and diphenhydramine. Suicidal attempt but without current ideation or plan, with possible underlying mood disorder versus major depression versus post- depression. Plan: - Will continue to monitor in ICU overnight with telemetry - Will repeat liver enzymes, electrolytes, kidney function, coag panel, and acetaminophen level in the morning - NAC treatment will depend on the above findings - Will call poison control in the morning for updates to the plan - Regarding diphenhydramine, she is currently asymptomatic and physostigmine is not currently indicated. No current anticholinergic symptoms, will monitor. QRS prolongation is a concern but initial EKG normal. - Regarding status, OB on board and plan to trend HCG levels to determine if spontaneous , viable , ectopic , trophoblastic disease. - Psych on board and sitter ordered by bedside. - Plans discussed with patient and parents. Patient seen and examined with Dr. Matos, Dr. López (Montrell Carr MD R3) Montrell Carr MD R3 Jul 03, 2017 22:49 Aubree Zamorano MD Jul 04, 2017 14:45
[2017-07-04] VITALS (15 sets, daily range): BP systolic 85–130; BP diastolic 46–67; PULSE 56–80; RESP 14–23; TEMP 97.6–99.3; O2SAT 94–100
[2017-07-04] MEDS: SODIUM CHLOR 0.9% 1000 ML INJ 1,000 ML IV SCH ×3 (02:36→22:36)
[2017-07-04] MEDS: CHLORHEXIDINE GLUCONATE 2 % 1 PACK (2 CLOTHS)(taper/protocol) TOPICAL SCH (04:00)
[2017-07-04] MEDS: HEPARIN SODIUM - SQ 10,000 UNITS/ML VIAL SQ SCH (05:00)
[2017-07-04 05:51] LABS: AUTOMATED NEUTROPHIL # 4.2 TH/MM3 (1.8-7.7); BASOPHIL # 0.1 TH/MM3 (0-0.2); EOSINOPHIL # 0.1 TH/MM3 (0-0.4); EOSINOPHIL % 1.1 % (0.0-4.0); HEMATOCRIT 37.3 % (35.0-46.0); HEMO FLAGS DIFF FINAL; MEAN CELL VOLUME 81.8 FL (80.0-100.0); MEAN CORPUSCULAR HEMOGLOBIN 25.8 PG (27.0-34.0); MEAN CORPUSCULAR HGB CONC 31.5 % (32.0-36.0); MONO % 10.9 % (0.0-8.0); PLATELET COUNT 274 TH/MM3 (150-450); RED BLOOD COUNT 4.56 MIL/MM3 (4.00-5.30); RED CELL DISTRIBUTION WIDTH 14.4 % (11.6-17.2); WHITE BLOOD COUNT 7.1 TH/MM3 (4.0-11.0)
[2017-07-04 06:01] LABS: INTERNATIONAL NORMALIZED RATIO 1.1 RATIO
[2017-07-04 06:21] LABS: ACETAMINOPHEN 9.8 MCG/ML (10.0-30.0)
[2017-07-04 06:38] LABS: ALKALINE PHOSPHATASE 50 U/L (45-117); TOTAL BILIRUBIN ADULT 0.2 MG/DL (0.2-1.0)
[2017-07-04 06:42] LABS: ALT (GPT) 16 U/L (10-53); ANION GAP 9 MEQ/L (5-15); AST (GOT) 11 U/L (15-37); BICARBONATE 20.6 MEQ/L (21.0-32.0); BLOOD UREA NITROGEN 7 MG/DL (7-18); CHLORIDE 107 MEQ/L (98-107); GLOMERULAR FILTRATION RATE 130 ML/MIN (>89); POTASSIUM 3.4 MEQ/L (3.5-5.1); SODIUM (NA) 137 MEQ/L (136-145)
[2017-07-04 06:45] LABS: BETA HCG QUANT 9024 MIU/ML (0-5)
[2017-07-04] MEDS: DOCUSATE SODIUM 50 MG/SENNA 8.6 MG TAB PO SCH ×2 (07:59→21:00)
[2017-07-04] MEDS: SODIUM CHLORIDE 0.9% FLUSH 10 ML FLUSH IV FLUSH SCH ×2 (07:59→21:00)
--- NOTE | 2017-07-04 09:28 | HHI.PR ---
Subjective Remarks Pt more alert this morning. States no low abdominal pain. Minimal vaginal bleeding. Objective Vital Signs Date Time Temp Pulse Resp B/P (MAP) Pulse Ox O2 Delivery O2 Flow Rate FiO2 07/04/17 06:00 98.0 56 14 108/66 (80) 07/04/17 06:00 56 07/04/17 04:00 66 23 108/59 (75) 07/04/17 04:00 66 07/04/17 02:00 62 07/04/17 00:00 69 07/04/17 00:00 98.1 69 16 85/46 (59) 100 07/03/17 22:00 59 07/03/17 20:00 64 07/03/17 20:00 98.4 64 17 119/71 (87) 100 07/03/17 18:38 07/03/17 17:22 74 16 18/67 (51) 97 Room Air 07/03/17 17:01 21 07/03/17 15:45 70 16 110/62 (78) 100 Room Air 07/03/17 14:27 64 15 104/59 (74) 100 Room Air 07/03/17 13:44 98.9 62 16 104/59 (74) 100 I/O 07/03/17 07/03/17 07/03/17 07/04/17 07/04/17 07/04/17 06:59 14:59 22:59 06:59 14:59 22:59 Intake Total 1750 ml 500 ml Balance 1750 ml 500 ml Intake IV Total 1750 ml 500 ml # Voids 3 2 Result Diagram: 07/04/1752207/04/17 0523 Objective Remarks Abdomen soft, non distended, no masses palpable No tenderness No LE tenderness, or swelling Assessment and Plan Assessment and Plan Pt is a 22 yo who is admitted after Acetaminophen overdose. Doing better. Pt noted to have Quant hCG of 10,000 with Us that showed 5-6 week gestation sac without pole or yolk sac. Minimal vag bleeding. FU Quant hCG is scheduled for 48 hours, but Quant hCG done 12 hours later was 9000. Likely blighted ovum, but ectopic not completely ruled out but less likely. Will continue to follow. Glenroy Mathews MD Jul 04, 2017 09:28
--- NOTE | 2017-07-04 11:16 | HHI.FPPN ---
Subjective Remarks Patient states she is feeling good this morning. Nausea and vomiting have resolved and her appetite has returned. No fevers or chills, no abdominal pain, no chest pain, no shortness of breath. (Kailey Matos MD R1) Objective Vitals Vital Signs Date Time Temp Pulse Resp B/P (MAP) Pulse Ox O2 Delivery O2 Flow Rate FiO2 07/04/17 10:29 98 21 07/04/17 06:00 98.0 56 14 108/66 (80) 07/04/17 06:00 56 07/04/17 04:00 66 23 108/59 (75) 07/04/17 04:00 66 07/04/17 02:00 62 07/04/17 00:00 69 07/04/17 00:00 98.1 69 16 85/46 (59) 100 07/03/17 22:00 59 07/03/17 20:00 64 07/03/17 20:00 98.4 64 17 119/71 (87) 100 07/03/17 18:38 07/03/17 17:22 74 16 18/67 (51) 97 Room Air 07/03/17 17:01 21 07/03/17 15:45 70 16 110/62 (78) 100 Room Air 07/03/17 14:27 64 15 104/59 (74) 100 Room Air 07/03/17 13:44 98.9 62 16 104/59 (74) 100 I/O 07/03/17 07/03/17 07/03/17 07/04/17 07/04/17 07/04/17 07:00 15:00 23:00 07:00 15:00 23:00 Intake Total 1750 ml 500 ml Balance 1750 ml 500 ml Intake IV Total 1750 ml 500 ml # Voids 3 2 (Kailey Matos MD R1) Result Diagram: 07/04/17 0523 07/04/17 0523 Imaging Last Impressions Chest X-Ray 07/03/17 1357 Signed Impressions: Service Date/Time: June 13:59 - CONCLUSION: No acute cardiopulmonary disease. Sara Giron MD Pelvis Ultrasound 07/03/17 0000 Signed Impressions: Service Date/Time: June 16:21 - CONCLUSION: Early IUP and follow up is suggested for viability. K. Mike Shamlou, MD Objective Remarks GENERAL: Well-nourished, well-developed patient. Smiling. Laying in bed. SKIN: Warm and dry. HEAD: Normocephalic. EYES: No scleral icterus. No injection or drainage. CARDIOVASCULAR: Regular rate and rhythm without murmurs, gallops, or rubs. RESPIRATORY: Breath sounds equal bilaterally. No accessory muscle use. GASTROINTESTINAL: Abdomen soft, suprapubic tenderness, nondistended. EXTREMITIES: No cyanosis, or edema. Right calf tenderness, no erythema or edema NEUROLOGICAL: Awake, alert. Non-focal. PSYCH: mood is good. No SI or HI. Medications and IVs Current Medications Medications (Trade) Dose Ordered Sig/Gray Route Start Time Stop Time Status Last Admin Acetylcysteine 6600 mg/Dextrose 1,033 ml @ 62.5 mls/hr ONCE IV 07/03/17 19:15 07/04/17 11:14 07/03/17 19:49 Sodium Chloride 1,000 ml @ 100 mls/hr Q10H IV 07/03/17 16:36 07/04/17 02:36 (NS Flush) 2 ml UNSCH PRN IV FLUSH 07/03/17 16:45 (NS Flush) 2 ml BID IV FLUSH 07/03/17 21:00 07/03/17 20:43 (Zofran Inj) 4 mg Q6H PRN IVP 07/03/17 16:45 (Heparin Inj) 5,000 units Q12H SQ 07/03/17 17:00 07/04/17 05:00 (Narcan Inj) 0.4 mg UNSCH PRN IV 07/03/17 16:45 (Adilia-Colace) 1 tab BID PO 07/03/17 21:00 (Milk Of Magnesia Liq) 30 ml Q12H PRN PO 07/03/17 16:45 (Senokot) 17.2 mg Q12H PRN PO 07/03/17 16:45 (Dulcolax Supp) 10 mg DAILY PRN RECTAL 07/03/17 16:45 (Lactulose Liq) 30 ml DAILY PRN PO 07/03/17 16:45 Miscellaneous Information Patient in critical care unit? Ass... Q361D .XX 07/03/17 21:30 07/03/17 21:30 (Chlorhexidine 2% Cloth) 3 pack DAILY@04 TOPICAL 07/04/17 04:00 07/08/17 04:01 07/04/17 04:00 (Chlorhexidine 2% Cloth) 3 pack UNSCH PRN TOPICAL 07/03/17 21:30 07/08/17 21:24 (Kailey Matos MD R1) A/P Assessment and Plan 22 year old presents after suicidal attempt after taking two bottles of acetaminophen Discharge Planning Upon clearance from Psychiatry (Kailey Matos MD R1) Attending Attestation Patient seen and examined. Case reviewed and discussed Agree with plan of care as discussed with me and documented in the resident note. (Aubree Zamorano MD) Problem List: (1) Acetaminophen overdose ICD Codes: T39.1X1A - Poisoning by 4-Aminophenol derivatives, accidental ( unintentional), initial encounter Status: Resolved Plan: Patient took two bottles of extra strength Tylenol at 11 AM yesterday, also took 10 acetaminophen a week ago, both times with suicidal intent. Liver enzymes currently normal. Acetaminophen level 9.8 this AM. Poison control signed off. States that since her Tylenol level and labs are good , she will not need another dose of N-acetylcysteine after her 3rd dose. - Discussed with poison control, the plan is as follows: - Transfer to med/surg floor after last dose of N-acetylcysteine completes. - IV N-acetylcysteine protocol. At end of protocol, will repeat coag panel, liver enzymes, acetaminophen level. - Psych/OB drug screen pending, so far negative. - Zofran for nausea and vomiting. - See below for further plans regarding suicidality and psychiatric issues. (2) ICD Codes: Z34.90 - Encounter for supervision of normal , unspecified , unspecified trimester Plan: Urine test positive with HCG quant of 10,531. Bedside transvaginal ultrasound showing gestational sac but with no pole, which is concerning for spontaneous . Also with active vaginal bleeding for one week. She is uncertain about passing tissue or clots. Currently with no fevers and with stable vital signs. - Consult OB, spoke with Dr. Mathews, plan as follows. - Serial quant HCG's to determine trend. Dropped to 9,024. Next to be drawn in the AM. - If spontaneous , option between medication versus surgical versus expectant management. (3) Suicidal deliberate poisoning ICD Codes: T65.92XA - Toxic effect of unspecified substance, intentional self- harm, initial encounter Status: Acute Plan: Second suicide attempt within a week period with Tylenol overdose each time. Has significant depression recently, and having arguments with her mother and her baby's father. - Consult psychiatry, appreciate recs * Patient at great risk for self-harm * When patient is medically stable, contact the psychiatrist water pollution specialist for admission to the psychiatric service. - Currently under [place] - Case management consult for outpatient treatment options - 1:1 sitter (4) No contraindication to deep vein thrombosis (DVT) prophylaxis ICD Codes: Z78.9 - Other specified health status Status: Acute Plan: Heparin prophylactically, 5000 units bid. (5) Nutrition, metabolism, and development symptoms ICD Codes: R63.8 - Other symptoms and signs concerning food and fluid intake Status: Acute Plan: IV normal saline at maintenance Regular diet Electrolytes currently normal, monitor (Kailey Matos MD R1) Problem Qualifiers (1) Acetaminophen overdose: Qualified Codes: T39.1X2A - Poisoning by 4-aminophenol derivatives, intentional self-harm, initial encounter (2) : Qualified Codes: Z3A.01 - Less than 8 weeks gestation of (3) Suicidal deliberate poisoning: Qualified Codes: T65.92XA - Toxic effect of unspecified substance, intentional self-harm, initial encounter Kailey Matos MD R1 Jul 04, 2017 11:16 Aubree Zamorano MD Jul 07, 2017 08:52
--- NOTE | 2017-07-04 11:22 | EKG ---
Date Performed: 07/03/2017 Time Performed: 14:03:45 PTAGE: 22 years EKG: Sinus rhythm Early repolarization Nonspecific ST-T wave changes, consider pericarditis if clinical history is sug gestive NO PREVIOUS TRACING DOCTOR: Julian Coy Interpretating Date/Time 07/04/2017 11:21:17
--- NOTE | 2017-07-04 12:25 | PD.PSY.CON ---
Provisional Diagnosis Admission Date Jul 03, 2017 at 15:42 [place]. Adjustment disorder with mixed disturbance of emotion and conduct History of Present Illness Service Psychiatry Consult Requested By Attending physician Reason for Consult Status post Tylenol overdose Primary Care Physician No Primary Care Physician HPI This is a 22-year-old female who apparently overdosed on approximately 40 of her 500 mg Tylenol tablets. Patient was found in her room, obtunded, and brought to this facility. She was admitted to the intensive care unit, where this physician interviewed her in front of HER-2 sisters. The patient has a son in her lap and is smiling and playing with her son. On the other hand, this is her second Tylenol overdose in the last several weeks. The first overdose did not include as many pills. On both occasions, the patient was upset due to verbal altercations with the father of her son. Patient reports she also lost a baby due to miscarriage several months ago. She is currently denying any suicidal or homicidal ideation, plan or intent. However, neither of her sisters present will vouch for her safety or states that they feel safe with her returning home. Review of Systems Except as stated in HPI: all other systems reviewed are Neg Past Family Social History Coded Allergies: No Known Allergies (Unverified , 07/03/17) No Active Prescriptions or Reported Meds Current Medications Medications (Trade) Dose Ordered Sig/Gray Route Start Time Stop Time Status Last Admin Sodium Chloride 1,000 ml @ 100 mls/hr Q10H IV 07/03/17 16:36 07/04/17 02:36 (NS Flush) 2 ml UNSCH PRN IV FLUSH 07/03/17 16:45 (NS Flush) 2 ml BID IV FLUSH 07/03/17 21:00 07/03/17 20:43 (Zofran Inj) 4 mg Q6H PRN IVP 07/03/17 16:45 (Heparin Inj) 5,000 units Q12H SQ 07/03/17 17:00 07/04/17 05:00 (Narcan Inj) 0.4 mg UNSCH PRN IV 07/03/17 16:45 (Adilia-Colace) 1 tab BID PO 07/03/17 21:00 (Milk Of Magnesia Liq) 30 ml Q12H PRN PO 07/03/17 16:45 (Senokot) 17.2 mg Q12H PRN PO 07/03/17 16:45 (Dulcolax Supp) 10 mg DAILY PRN RECTAL 07/03/17 16:45 (Lactulose Liq) 30 ml DAILY PRN PO 07/03/17 16:45 Miscellaneous Information Patient in critical care unit? Ass... Q361D .XX 07/03/17 21:30 07/03/17 21:30 (Chlorhexidine 2% Cloth) 3 pack DAILY@04 TOPICAL 07/04/17 04:00 07/08/17 04:01 07/04/17 04:00 (Chlorhexidine 2% Cloth) 3 pack UNSCH PRN TOPICAL 07/03/17 21:30 07/08/17 21:24 Family History Positive for mood and anxiety disorders. Social History Patient is not currently employed. She does receive family assistance. Her baby's father is not only unsupportive but antagonistic at times. Patient denies a history of alcoholism or drug abuse. Patient's Strengths (min. 2) Verbal and has access to healthcare. Physical Exam GENERAL: SKIN: Warm and dry. HEAD: Normocephalic. EYES: No scleral icterus. No injection or drainage. NECK: Supple, trachea midline. No JVD or lymphadenopathy. CARDIOVASCULAR: Regular rate and rhythm without murmurs, gallops, or rubs. RESPIRATORY: Breath sounds equal bilaterally. No accessory muscle use. GASTROINTESTINAL: Abdomen soft, non-tender, nondistended. MUSCULOSKELETAL: No cyanosis, or edema. BACK: Nontender without obvious deformity. No CVA tenderness. Vital Signs Vital Signs Date Time Temp Pulse Resp B/P (MAP) Pulse Ox O2 Delivery O2 Flow Rate FiO2 07/04/17 10:29 98 21 07/04/17 06:00 98.0 56 14 108/66 (80) 07/03/17 17:22 Room Air Lab Results Test 07/03/17 14:06 07/03/17 15:30 07/03/17 18:20 07/03/17 20:53 White Blood Count 6.4 TH/MM3 Red Blood Count 4.52 MIL/MM3 Hemoglobin 11.9 GM/DL Hematocrit 36.8 % Mean Corpuscular Volume 81.5 FL Mean Corpuscular Hemoglobin 26.3 PG Mean Corpuscular Hemoglobin Concent 32.3 % Red Cell Distribution Width 14.1 % Platelet Count 272 TH/MM3 Mean Platelet Volume 8.4 FL Neutrophils (%) (Auto) 54.6 % Lymphocytes (%) (Auto) 28.1 % Monocytes (%) (Auto) 15.1 % Eosinophils (%) (Auto) 1.2 % Basophils (%) (Auto) 1.0 % Neutrophils # (Auto) 3.5 TH/MM3 Lymphocytes # (Auto) 1.8 TH/MM3 Monocytes # (Auto) 1.0 TH/MM3 Eosinophils # (Auto) 0.1 TH/MM3 Basophils # (Auto) 0.1 TH/MM3 CBC Comment DIFF FINAL Differential Comment Prothrombin Time 11.4 SEC Prothromb Time International Ratio 1.0 RATIO Activated Partial Thromboplast Time 31.5 SEC Blood Urea Nitrogen 10 MG/DL 6 MG/DL Creatinine 0.63 MG/DL 0.56 MG/DL Random Glucose 88 MG/DL 95 MG/DL Total Protein 6.7 GM/DL 6.6 GM/DL Albumin 3.4 GM/DL 3.2 GM/DL Calcium Level 8.2 MG/DL 7.9 MG/DL Alkaline Phosphatase 56 U/L 56 U/L Aspartate Amino Transf (AST/SGOT) 13 U/L 10 U/L Alanine Aminotransferase (ALT/SGPT) 13 U/L 22 U/L Total Bilirubin 0.4 MG/DL 0.5 MG/DL Sodium Level 136 MEQ/L 136 MEQ/L Potassium Level 4.2 MEQ/L 3.7 MEQ/L Chloride Level 105 MEQ/L 105 MEQ/L Carbon Dioxide Level 23.9 MEQ/L 19.7 MEQ/L Anion Gap 7 MEQ/L 11 MEQ/L Estimat Glomerular Filtration Rate 144 ML/MIN 165 ML/MIN Serum Osmolality 288 MOSM/KG Human Chorionic Gonadotropin, Quant 76931 MIU/ML Salicylates Level LESS THAN 1.7 MG/DL Acetaminophen Level 200.4 MCG/ML 101.8 MCG/ML Ethyl Alcohol Level LESS THAN 3 MG/DL Urine Color LIGHT-YELLOW Urine Turbidity CLEAR Urine pH 7.0 Urine Specific [place] 1.022 Urine Protein NEG mg/dL Urine Glucose (UA) NEG mg/dL Urine Ketones 40 mg/dL Urine Occult Blood NEG Urine Nitrite NEG Urine Bilirubin NEG Urine Urobilinogen LESS THAN 2.0 MG/DL Urine Leukocyte Esterase NEG Urine RBC LESS THAN 1 /hpf Urine Squamous Epithelial Cells <1 /hpf Microscopic Urinalysis Comment CULT NOT INDICATED Urine Opiates Screen NEG Urine Barbiturates Screen NEG Urine Amphetamines Screen NEG Urine Benzodiazepines Screen NEG Urine Cocaine Screen NEG Urine Cannabinoids Screen NEG Nasal Screen MRSA (PCR) MRSA NOT DETECTED Test 07/04/17 05:23 White Blood Count 7.1 TH/MM3 Red Blood Count 4.56 MIL/MM3 Hemoglobin 11.7 GM/DL Hematocrit 37.3 % Mean Corpuscular Volume 81.8 FL Mean Corpuscular Hemoglobin 25.8 PG Mean Corpuscular Hemoglobin Concent 31.5 % Red Cell Distribution Width 14.4 % Platelet Count 274 TH/MM3 Mean Platelet Volume 8.1 FL Neutrophils (%) (Auto) 59.0 % Lymphocytes (%) (Auto) 28.0 % Monocytes (%) (Auto) 10.9 % Eosinophils (%) (Auto) 1.1 % Basophils (%) (Auto) 1.0 % Neutrophils # (Auto) 4.2 TH/MM3 Lymphocytes # (Auto) 2.0 TH/MM3 Monocytes # (Auto) 0.8 TH/MM3 Eosinophils # (Auto) 0.1 TH/MM3 Basophils # (Auto) 0.1 TH/MM3 CBC Comment DIFF FINAL Differential Comment Prothrombin Time 12.0 SEC Prothromb Time International Ratio 1.1 RATIO Blood Urea Nitrogen 7 MG/DL Creatinine 0.69 MG/DL Random Glucose 96 MG/DL Total Protein 5.9 GM/DL Albumin 2.8 GM/DL Calcium Level 7.7 MG/DL Alkaline Phosphatase 50 U/L Aspartate Amino Transf (AST/SGOT) 11 U/L Alanine Aminotransferase (ALT/SGPT) 16 U/L Total Bilirubin 0.2 MG/DL Sodium Level 137 MEQ/L Potassium Level 3.4 MEQ/L Chloride Level 107 MEQ/L Carbon Dioxide Level 20.6 MEQ/L Anion Gap 9 MEQ/L Estimat Glomerular Filtration Rate 130 ML/MIN Human Chorionic Gonadotropin, Quant 9024 MIU/ML Acetaminophen Level 9.8 MCG/ML Mental Status Examination Speech: Unremarkable Orientation: x3 Memory: Unremarkable Thought Process: Organized, Goal Directed Thought Content: Unremarkable Hallucination Type: None Attention and Concentration: Good Suicidal Ideation: No Previous Suicide Attempts: No Homicidal Ideation: No Previous Homicide Attempts: No Insight: Fair Judgment: Impulsive Affect: Anxious Mood: Anxious Motor Activity: Normal gait Assessment & Plan Problem List: (1) Adjustment disorder with mixed disturbance of emotions and conduct ICD Codes: F43.25 - Adjustment disorder with mixed disturbance of emotions and conduct Status: Acute Assessment & Plan Estimated LOS: days as this is the patient's second overdose in the last several weeks, and on this occasion she took 4500 mg pills of Tylenol, this physician feels she is at great risk for self-harm. The patient acts impulsively when upset and the fact that she is currently denying suicidal thinking and smiling, does not indicate she has good judgment or insight regarding the future. Furthermore, as neither of her sisters feels comfortable vouching for the patient's safety, this causes the physician greater concern. Therefore, when the patient is medically stable, please contact the psychiatrist agronomy teacher for admission to the psychiatric service. Logan Schaeffer MD Jul 04, 2017 12:25
--- NOTE | 2017-07-04 15:05 | RADRPT ---
EXAM DATE/TIME: 07/04/2017 13:41 [facility] COMPARISON: No previous studies available for comparison. INDICATIONS : Right leg pain. MEDICAL HISTORY : . Right leg pain. Nausea and vomiting. Tylenol overdose. SURGICAL HISTORY : , May 2016. ENCOUNTER: Initial ACUITY: 1 day PAIN SCORE: 2/10 LOCATION: Right leg. TECHNIQUE: Venous ultrasound of the leg was performed from the inguinal ligament to the proximal calf. Real-vianey e, color Doppler and spectral tracing, compression and augmentation techniques were used. FINDINGS: There is normal compressibility of the deep venous system from the inguinal region to the proximal ca lf. No echogenic clot is seen in the lumen of the common femoral, femoral, popliteal, and posterior tibial veins. There is a normal response of the venous system to proximal and distal augmentation an d respiration. CONCLUSION: 1. No sonographic evidence for right lower extremity DVT. Stevie Rubio MD on July 04, 2017 at 15:03 Board Certified Radiologist. This report was verified electronically.
[2017-07-04 16:56] LABS: APTT (PATIENT) 28.9 SEC (24.3-30.1); INTERNATIONAL NORMALIZED RATIO 1.1 RATIO; PROTHROMBIN TIME - PATIENT 12.2 SEC (9.8-11.6)
[2017-07-04 17:00] LABS: ACETAMINOPHEN 2.7 MCG/ML (10.0-30.0); ALKALINE PHOSPHATASE 49 U/L (45-117); ALT (GPT) 13 U/L (10-53); ANION GAP 8 MEQ/L (5-15); AST (GOT) 8 U/L (15-37); BICARBONATE 23.8 MEQ/L (21.0-32.0); BLOOD UREA NITROGEN 5 MG/DL (7-18); CHLORIDE 111 MEQ/L (98-107); GLOMERULAR FILTRATION RATE 150 ML/MIN (>89); POTASSIUM 4.2 MEQ/L (3.5-5.1); SODIUM (NA) 143 MEQ/L (136-145); TOTAL BILIRUBIN ADULT 0.2 MG/DL (0.2-1.0)
[2017-07-05] VITALS (8 sets, daily range): BP systolic 99–126; BP diastolic 50–83; PULSE 57–143; RESP 16–20; TEMP 98.1–98.8; O2SAT 97–100
[2017-07-05] MEDS: CHLORHEXIDINE GLUCONATE 2 % 1 PACK (2 CLOTHS)(taper/protocol) TOPICAL SCH (04:00)
[2017-07-05 08:08] LABS: HEMATOCRIT 33.8 % (35.0-46.0); MEAN CELL VOLUME 81.5 FL (80.0-100.0); MEAN CORPUSCULAR HEMOGLOBIN 26.7 PG (27.0-34.0); MEAN CORPUSCULAR HGB CONC 32.7 % (32.0-36.0); PLATELET COUNT 250 TH/MM3 (150-450); RED BLOOD COUNT 4.15 MIL/MM3 (4.00-5.30); RED CELL DISTRIBUTION WIDTH 14.3 % (11.6-17.2); REVIEW FLAG FINAL; WHITE BLOOD COUNT 5.3 TH/MM3 (4.0-11.0)
[2017-07-05 08:32] LABS: ANION GAP 8 MEQ/L (5-15); AST (GOT) 11 U/L (15-37); BICARBONATE 24.8 MEQ/L (21.0-32.0); BLOOD UREA NITROGEN 4 MG/DL (7-18); CHLORIDE 109 MEQ/L (98-107); GLOMERULAR FILTRATION RATE 198 ML/MIN (>89); POTASSIUM 3.5 MEQ/L (3.5-5.1); SODIUM (NA) 142 MEQ/L (136-145)
[2017-07-05] MEDS: SODIUM CHLORIDE 0.9% FLUSH 10 ML FLUSH IV FLUSH SCH ×2 (08:32→20:48)
[2017-07-05] MEDS: DOCUSATE SODIUM 50 MG/SENNA 8.6 MG TAB PO SCH ×2 (08:32→20:49)
[2017-07-05] MEDS: SODIUM CHLOR 0.9% 1000 ML INJ 1,000 ML IV SCH ×3 (08:33→20:48)
[2017-07-05 08:51] LABS: ALKALINE PHOSPHATASE 45 U/L (45-117); ALT (GPT) 12 U/L (10-53); BETA HCG QUANT 9616 MIU/ML (0-5); TOTAL BILIRUBIN ADULT 0.4 MG/DL (0.2-1.0)
--- NOTE | 2017-07-05 09:29 | HHI.PR ---
Subjective Remarks Patient refusing to speak or answer questions this morning. Her vitals are stable and she remains afebrile. She continues to have good urine output. Per nursing, she continues to have small amount of brown vaginal bleeding. She is otherwise not in pain. Objective Vital Signs Date Time Temp Pulse Resp B/P (MAP) Pulse Ox O2 Delivery O2 Flow Rate FiO2 07/05/17 04:00 Room Air 07/05/17 04:00 98.1 79 16 99/83 (88) 98 07/05/17 02:32 76 07/05/17 00:00 98.2 57 20 117/68 (84) 100 07/05/17 00:00 Room Air 07/05/17 00:00 98.2 143 20 124/80 (95) 97 07/04/17 23:22 98.8 64 20 116/64 (81) 94 07/04/17 22:00 74 07/04/17 20:44 97 07/04/17 20:00 74 07/04/17 20:00 99.3 74 20 130/60 (83) 97 07/04/17 18:00 75 07/04/17 16:00 97.6 70 19 114/65 (81) 100 07/04/17 16:00 70 07/04/17 14:00 70 07/04/17 12:00 80 07/04/17 12:00 97.6 69 14 99/55 (70) 100 07/04/17 10:29 98 21 07/04/17 10:00 72 I/O 07/04/17 07/04/17 07/04/17 07/05/17 07/05/17 07/05/17 07:00 15:00 23:00 07:00 15:00 23:00 Intake Total 500 ml 2033 ml 1560 ml 960 ml Balance 500 ml 2033 ml 1560 ml 960 ml Intake Oral 960 ml 360 ml IV Total 500 ml 2033 ml 600 ml 600 ml # Voids 2 3 0 Result Diagram: 07/05/17 0642 07/05/17 0642 Imaging Last Impressions Lower Extremity Ultrasound 07/04/17 0000 Signed Impressions: Service Date/Time: Tuesday, July 04, 2017 13:41 - CONCLUSION: 1. No sonographic evidence for right lower extremity DVT. Stevie Rubio MD Chest X-Ray 07/03/17 1357 Signed Impressions: Service Date/Time: June 13:59 - CONCLUSION: No acute cardiopulmonary disease. Sara Giron MD Pelvis Ultrasound 07/03/17 0000 Signed Impressions: Service Date/Time: , July 03, 2017 16:21 - CONCLUSION: Early IUP and follow up is suggested for viability. Sara Giron MD Objective Remarks GENERAL: Well-nourished, well-developed patient. SKIN: Warm and dry. HEAD: Normocephalic and atraumatic. EYES: No scleral icterus. No injection or drainage. ENT: No nasal drainage noted. Mucous membranes pink. Airway patent. NECK: Supple, trachea midline. No JVD. CARDIOVASCULAR: Regular rate and rhythm without murmurs, gallops, or rubs. RESPIRATORY: Breath sounds equal bilaterally. No accessory muscle use. ABDOMEN/GI: Abdomen soft, non-tender, bowel sounds present, no rebound, no guarding Gravid to 5 weeks size EXTREMITIES: No cyanosis or edema. BACK: Nontender without obvious deformity. NEUROLOGICAL: Awake and alert. Assessment and Plan Problem List: (1) as incidental finding ICD Codes: Z33.1 - state, incidental Status: Acute Plan: Incidental finding of in ED with positive urine test. 07/03 US shows early IUP with intrauterine gestational sac measuring 1.2 cm, pole and yolk sac not present. Initial quantitative beta hCG [id number] on 07/03 at 1400. Repeat beta hCG trending down to 9024 after 24 hours and then back up to 9616 after approximately 41 hours. Plan: - Obtain repeat US today to evaluate for location of dw Dr. Medina Physician Attestation Patient seen and evaluated with resident under direct supervision, agree with assessment and plan. Lina Martini MD, R3 Jul 05, 2017 09:29 Chase Medina MD Jul 06, 2017 17:08
--- NOTE | 2017-07-05 11:27 | HHI.FPPN ---
Subjective Remarks Patient seen and examined this morning. No acute events overnight. Patient denies any complaints/concerns this morning. States her vaginal bleeding has improved, is now a small brown amount, she states "like the end of a period." Denies any chest pain, shortness of breath, abdominal pain, leg pain. States her mood is okay. Denies any suicidal or homicidal ideations. (Roly Hitchcock MD, R2) Objective Vitals Vital Signs Date Time Temp Pulse Resp B/P (MAP) Pulse Ox O2 Delivery O2 Flow Rate FiO2 07/05/17 08:00 98.6 75 20 112/55 (74) 100 07/05/17 04:00 Room Air 07/05/17 04:00 98.1 79 16 99/83 (88) 98 07/05/17 02:32 76 07/05/17 00:00 98.2 57 20 117/68 (84) 100 07/05/17 00:00 Room Air 07/05/17 00:00 98.2 143 20 124/80 (95) 97 07/04/17 23:22 98.8 64 20 116/64 (81) 94 07/04/17 22:00 74 07/04/17 20:44 97 07/04/17 20:00 74 07/04/17 20:00 99.3 74 20 130/60 (83) 97 07/04/17 18:00 75 07/04/17 16:00 97.6 70 19 114/65 (81) 100 07/04/17 16:00 70 07/04/17 14:00 70 07/04/17 12:00 80 07/04/17 12:00 97.6 69 14 99/55 (70) 100 I/O 07/04/17 07/04/17 07/04/17 07/05/17 07/05/17 07/05/17 06:59 14:59 22:59 06:59 14:59 22:59 Intake Total 500 ml 2033 ml 1560 ml 960 ml Balance 500 ml 2033 ml 1560 ml 960 ml Intake Oral 960 ml 360 ml IV Total 500 ml 2033 ml 600 ml 600 ml # Voids 2 3 0 (Roly Hitchcock MD, R2) Result Diagram: 07/05/17 0642 07/05/17 0642 Imaging Last Impressions Lower Extremity Ultrasound 07/04/17 0000 Signed Impressions: Service Date/Time: Tuesday, July 04, 2017 13:41 - CONCLUSION: 1. No sonographic evidence for right lower extremity DVT. Stevie Rubio MD Chest X-Ray 07/03/17 1357 Signed Impressions: Service Date/Time: June 13:59 - CONCLUSION: No acute cardiopulmonary disease. Sara Giron MD Pelvis Ultrasound 07/03/17 0000 Signed Impressions: Service Date/Time: June 16:21 - CONCLUSION: Early IUP and follow up is suggested for viability. Sara Giron MD Objective Remarks GENERAL: Well-nourished, well-developed patient. Smiling. Laying in bed. CARDIOVASCULAR: Regular rate and rhythm without murmurs, gallops, or rubs. RESPIRATORY: Breath sounds equal bilaterally. No accessory muscle use. GASTROINTESTINAL: Abdomen soft, no tenderness, nondistended. EXTREMITIES: No cyanosis, or edema. Non-tender NEUROLOGICAL: Awake, alert. Non-focal. PSYCH: No SI or HI. Normal speech (Roly Hitchcock MD, R2) A/P Assessment and Plan 22 year old presents after suicidal attempt after taking two bottles of acetaminophen Discharge Planning Upon paper sealer workup; once medically stable, transfer to inpatient psychiatry (Roly Hitchcock MD, R2) Attending Attestation Patient seen and examined. Case reviewed and discussed Agree with plan of care as discussed with me and documented in the resident note. (Aubree Zamorano MD) Problem List: (1) ICD Codes: Z34.90 - Encounter for supervision of normal , unspecified , unspecified trimester Plan: Urine test positive with HCG quant of 10,531. Bedside transvaginal ultrasound showing gestational sac but with no pole, which is concerning for spontaneous . Also with active vaginal bleeding for one week, improving If HCGs remain the same, concern for ectopic vs trophoblastic disease HCGs: 11616-->9024-->9616 -OB consulted-appreciate recs -Repeat ultrasound -Trend HCGs - If spontaneous , option between medication versus surgical versus expectant management. (2) Suicidal deliberate poisoning ICD Codes: T65.92XA - Toxic effect of unspecified substance, intentional self- harm, initial encounter Status: Acute Plan: Second suicide attempt within a week period with Tylenol overdose each time. Has significant depression recently, and having arguments with her mother and her baby's father. - Consult psychiatry, appreciate recs * Patient at great risk for self-harm * When patient is medically stable, contact the psychiatrist infrastructure consultant for admission to the psychiatric service. - Currently under [place] Act - Case management consult for outpatient treatment options - 1:1 sitter (3) Acetaminophen overdose ICD Codes: T39.1X1A - Poisoning by 4-Aminophenol derivatives, accidental ( unintentional), initial encounter Status: Resolved Plan: Patient took two bottles of extra strength Tylenol also took 10 acetaminophen a week ago, both times with suicidal intent. Liver enzymes stable and Tylenol level normalized Poison control signed off. S/p NAC - Psych/OB drug screen pending, so far negative. - Zofran for nausea and vomiting. - Psych consulted (4) Nutrition, metabolism, and development symptoms ICD Codes: R63.8 - Other symptoms and signs concerning food and fluid intake Status: Acute Plan: IV normal saline at maintenance Regular diet Electrolytes currently normal, monitor DVT ppx: MICHA/SCDs (Roly Hitchcock MD, R2) Problem Qualifiers (1) : Qualified Codes: Z3A.01 - Less than 8 weeks gestation of (2) Suicidal deliberate poisoning: Qualified Codes: T65.92XA - Toxic effect of unspecified substance, intentional self-harm, initial encounter (3) Acetaminophen overdose: Qualified Codes: T39.1X2A - Poisoning by 4-aminophenol derivatives, intentional self-harm, initial encounter Roly Hitchcock MD, R2 Jul 05, 2017 11:27 Aubree Zamorano MD Jul 07, 2017 08:52
--- NOTE | 2017-07-05 14:16 | RADRPT ---
EXAM DATE/TIME: 07/05/2017 10:12 [facility] COMPARISON: US PELVIS, PREG, W/TRANSVAGINAL, July 03, 2017, 16:21. INDICATIONS : of undetermined location with decreasing BHCG. LAB(S): Beta-hC MEDICAL HISTORY : . Abnormal uterine bleeding. Depression. Overdose. SURGICAL HISTORY : . ENCOUNTER: Subsequent ACUITY: 3 days PAIN SCORE: 0/10 LOCATION: Bilateral pelvis MEASUREMENTS: UTERUS: 7.6 x 5.6 x 4.6 cm ENDOMETRIAL STRIPE: 4 mm RIGHT OVARY: 2.8 x 3.2 x 2.2 cm LEFT OVARY: NOT VISUALIZED FREE FLUID: No FHR: BPM FINDINGS: UTERUS: The uterus is significant for a well-developed decidual reaction, normal-appearing gestational sac an d yolk sac. The gestational sac measures 1.5 x 1.8 x 0.9 cm consistent with a 5 week and 4 day pregna ncy. There is no pole identified. There is a faint curvilinear area of slightly decreased echog enicity consistent with a small subchorionic hemorrhage. RIGHT OVARY: Ovary contains no mass or significant cystic lesion. LEFT OVARY: Ovary contains no mass or significant cystic lesion. MISCELLANEOUS: No free fluid. CONCLUSION: Single intrauterine gestation with gestational sac measuring 5 weeks and 4 day. Single yolk sac ident ified without evidence of a pole. The this appearance is essentially stable as compared to the exam of July 03, 2017. Viviana Jacobsen MD on July 05, 2017 at 14:11 Board Certified Radiologist. This report was verified electronically.
--- NOTE | 2017-07-05 20:39 | HHI.PR ---
SLOT HOST Note Note 22 yo admitted for second suicide attempt and Tylenol overdose. OBGYN consulted for early . Patient is 4 months , she is a patient of Dr. Morgan's from [facility]. She thinks she had a normal menses in May. She suspected she was and +HCG on admission. TVUS on admission noted a gestational sac without a pole, suspected blighted ovum vs threatened . Otherwise normal pelvis. She has had some intermittent spotting or small clots over the past few days, but denies any abdominal pain or cramping. Serial HCG from 10,534, starting to decrease 9616 today. Repeat US again c/w blighted ovum and no changes noted. Hgb is stable. LFTs WNL today No Rh status found (patient reports Rh+) - need to confirm this Patient is verbal, but poor eye contact and communication GAGAN macahdo present D/w patient and her sister diagnosis of blighted ovum. Discussed options including observation with spontaneous passage of POC on her own. She would expect increased bleeding, like a heavy period, which is decrease with passage of POC. This can take place at home if patient was discharged. Induced ab is also an option. Also discussed D&C, Dr. Herman is aware of the patient and can perform next week if needed. This would be elective and non-emergent unless something changed. Patient wants to consider her options at this time. At this time her medical service plan of care is to stabilize patient and transfer her to the psychiatric service for further care and observation. Meredith Freeman MD Jul 05, 2017 8:39 pm
[2017-07-05 21:15] LABS: AUTOMATED NEUTROPHIL # 3.4 TH/MM3 (1.8-7.7); BASOPHIL # 0.1 TH/MM3 (0-0.2); BASOPHIL % 0.9 % (0.0-2.0); EOSINOPHIL # 0.2 TH/MM3 (0-0.4); EOSINOPHIL % 2.3 % (0.0-4.0); HEMATOCRIT 32.7 % (35.0-46.0); HEMO FLAGS DIFF FINAL; LYMPH % 33.1 % (9.0-44.0); LYMPHOCYTE # 2.3 TH/MM3 (1.0-4.8); MEAN CELL VOLUME 81.4 FL (80.0-100.0); MONO % 14.4 % (0.0-8.0); NEUT % 49.3 % (16.0-70.0); PLATELET COUNT 257 TH/MM3 (150-450); RED BLOOD COUNT 4.01 MIL/MM3 (4.00-5.30)
[2017-07-06] VITALS (8 sets, daily range): BP systolic 98–111; BP diastolic 49–59; PULSE 71–81; RESP 16–20; TEMP 98–98.5; O2SAT 97–100
[2017-07-06] MEDS: CHLORHEXIDINE GLUCONATE 2 % 1 PACK (2 CLOTHS)(taper/protocol) TOPICAL SCH (04:00)
[2017-07-06] MEDS: DOCUSATE SODIUM 50 MG/SENNA 8.6 MG TAB PO SCH ×2 (07:33→20:35)
[2017-07-06] MEDS: SODIUM CHLORIDE 0.9% FLUSH 10 ML FLUSH IV FLUSH SCH ×2 (07:33→20:35)
--- NOTE | 2017-07-06 07:39 | HHI.PR ---
Subjective Remarks 22 yo with positive test and falling beta HCG. She has cramps and bleeding and has been counselled about a blighted ovum.She is aware that betal has fallen over 72 hours and is stable but no appropriate rise over 48 hours. Ultrasound shows sac but no viable IUP Objective Vital Signs Date Time Temp Pulse Resp B/P (MAP) Pulse Ox O2 Delivery O2 Flow Rate FiO2 07/06/17 04:00 Room Air 07/06/17 04:00 98.0 73 16 106/51 (69) 98 07/06/17 00:00 98.0 76 16 98/53 (68) 97 07/06/17 00:00 Room Air 07/05/17 20:00 78 07/05/17 20:00 Room Air 07/05/17 20:00 98.8 72 16 100/50 (67) 100 07/05/17 16:00 98.1 81 20 126/60 (82) 98 07/05/17 12:10 Room Air 07/05/17 12:00 98.6 82 20 116/55 (75) 100 07/05/17 09:00 90 07/05/17 08:30 Room Air 07/05/17 08:00 98.6 75 20 112/55 (74) 100 I/O 07/05/17 07/05/17 07/05/17 07/06/17 07/06/17 07/06/17 07:00 15:00 23:00 07:00 15:00 23:00 Intake Total 960 ml 2846 ml 240 ml Balance 960 ml 2846 ml 240 ml Intake Oral 360 ml 720 ml 240 ml IV Total 600 ml 2126 ml # Voids 0 4 3 # Bowel Movements 1 0 Result Diagram: 07/05/17204507/05/17 0642 Objective Remarks GENERAL: SKIN: Warm and dry. HEAD: Normocephalic. EYES: No scleral icterus. No injection or drainage. NECK: Supple, trachea midline. No JVD or lymphadenopathy. CARDIOVASCULAR: Regular rate and rhythm without murmurs, gallops, or rubs. RESPIRATORY: Breath sounds equal bilaterally. No accessory muscle use. GASTROINTESTINAL: Abdomen soft, non-tender, nondistended. MUSCULOSKELETAL: No cyanosis, or edema. BACK: Nontender without obvious deformity. No CVA tenderness. Assessment and Plan Problem List: (1) Missed ICD Codes: O02.1 - Missed Plan: for D&C patient consented Jaya Herman MD Jul 06, 2017 07:39
[2017-07-06] MEDS ORDERED: OXYTOCIN 10 UNIT/ML AMP ONE (07:44)
--- NOTE | 2017-07-06 08:32 | PD.OP ---
Operative Report Date of Surgery: Jul 06, 2017 Preoperative Diagnosis: (1) Missed Postoperative Diagnosis: (1) Missed Procedure: D&C with suction Anesthesia: general Surgeon: Jaya Herman Slitting Machine Operator(s): Jaya Anderson MD Jul 06, 2017 08:31
[2017-07-06] MEDS ORDERED: DO NOT ADM ANY ANTICOAGULANT DRUGS PRN (08:39)
[2017-07-06] MEDS ORDERED: MIDAZOLAM HCL 2 MG/2 ML VIAL ONE (08:41)
[2017-07-06] MEDS ORDERED: IBUPROFEN 400 MG TAB PO PRN (08:45)
--- NOTE | 2017-07-06 10:03 | HHI.FPPN ---
Subjective Remarks Patient states that she is doing well this morning. She just returned to her room from her D&C procedure with Dr. Herman. She states that her mood is okay. No SI/HI. No fevers or chills, no chest pain, no shortness of breath, no abdominal pain, no nausea or vomiting, no diarrhea or constipation. (Kailey Matos MD R1) Objective Vitals Vital Signs Date Time Temp Pulse Resp B/P (MAP) Pulse Ox O2 Delivery O2 Flow Rate FiO2 07/06/17 09:05 97.0 60 18 99 Room Air 07/06/17 09:00 59 14 109/59 (76) 100 Nasal Cannula 2 07/06/17 08:45 65 13 117/62 (80) 100 Nasal Cannula 2 07/06/17 08:37 97.6 68 15 110/57 (74) 100 Nasal Cannula 2 07/06/17 08:25 Room Air 07/06/17 04:00 Room Air 07/06/17 04:00 98.0 73 16 106/51 (69) 98 07/06/17 00:00 98.0 76 16 98/53 (68) 97 07/06/17 00:00 Room Air 07/05/17 20:00 78 07/05/17 20:00 Room Air 07/05/17 20:00 98.8 72 16 100/50 (67) 100 07/05/17 16:00 98.1 81 20 126/60 (82) 98 07/05/17 12:10 Room Air 07/05/17 12:00 98.6 82 20 116/55 (75) 100 I/O 07/05/17 07/05/17 07/05/17 07/06/17 07/06/17 07/06/17 06:59 14:59 22:59 06:59 14:59 22:59 Intake Total 960 ml 2846 ml 240 ml 300 ml Output Total 10 ml Balance 960 ml 2846 ml 240 ml 290 ml Intake Oral 360 ml 720 ml 240 ml IV Total 600 ml 2126 ml Other 300 ml Output Estimated Blood Loss 10 ml # Voids 0 4 3 # Bowel Movements 1 0 (Kailey Matos MD R1) Result Diagram: 07/05/176 07/05/17 0642 Imaging Last Impressions Pelvis Ultrasound 07/05/17 0000 Signed Impressions: Service Date/Time: Wednesday, July 05, 2017 10:12 - CONCLUSION: Single intrauterine gestation with gestational sac measuring 5 weeks and 4 day. Single yolk sac identified without evidence of a pole. The this appearance is essentially stable as compared to the exam of July 03, 2017. Viviana Jacobsen MD Lower Extremity Ultrasound 07/04/17 0000 Signed Impressions: Service Date/Time: Tuesday, July 04, 2017 13:41 - CONCLUSION: 1. No sonographic evidence for right lower extremity DVT. Stevie Rubio MD Chest X-Ray 07/03/17 1357 Signed Impressions: Service Date/Time: June 13:59 - CONCLUSION: No acute cardiopulmonary disease. Sara Giron MD Objective Remarks GENERAL: Well-nourished, well-developed patient. Smiling. Laying in bed. CARDIOVASCULAR: Regular rate and rhythm without murmurs, gallops, or rubs. RESPIRATORY: Breath sounds equal bilaterally. No accessory muscle use. GASTROINTESTINAL: Abdomen soft, no tenderness, nondistended. EXTREMITIES: No cyanosis, or edema. Non-tender NEUROLOGICAL: Awake, alert. Non-focal. Numbness in bilateral LE's PSYCH: Mood is euthymic. No SI or HI. Normal speech Procedures D&C 07-06-17 (Kailey Matos MD R1) A/P Assessment and Plan 22 year old presents after suicidal attempt after taking two bottles of acetaminophen Discharge Planning Upon cigar packing examiner workup; once medically stable, transfer to inpatient psychiatry (Kailey Matos MD R1) Attending Attestation Patient seen and examined. Case reviewed and discussed Agree with plan of care as discussed with me and documented in the resident note. (Aubree Zamorano MD) Problem List: (1) ICD Codes: Z34.90 - Encounter for supervision of normal , unspecified , unspecified trimester Plan: Urine test positive with HCG quant of 10,531. Bedside transvaginal ultrasound showing gestational sac but with no pole, which is concerning for spontaneous . Also with active vaginal bleeding for one week, improving If HCGs remain the same, concern for ectopic vs trophoblastic disease HCGs: 96566-->9024-->9616 -OB consulted-appreciate recs -Repeat ultrasound showed gestational sac measuring 5 weeks and 4 days. No evidence of pole. Stable from previous US on 07-03. -Diagnosed with missed -D&C performed under general anesthesia this morning (2) Suicidal deliberate poisoning ICD Codes: T65.92XA - Toxic effect of unspecified substance, intentional self- harm, initial encounter Status: Acute Plan: Second suicide attempt within a week period with Tylenol overdose each time. Has significant depression recently, and having arguments with her mother and her baby's father. - Consult psychiatry, appreciate recs * Patient at great risk for self-harm * When patient is medically stable, contact the psychiatrist precision inspector for admission to the psychiatric service. - Currently under [place] Act - Case management consult for outpatient treatment options - 1:1 sitter (3) Acetaminophen overdose ICD Codes: T39.1X1A - Poisoning by 4-Aminophenol derivatives, accidental ( unintentional), initial encounter Status: Resolved Plan: Patient took two bottles of extra strength Tylenol also took 10 acetaminophen a week ago, both times with suicidal intent. Liver enzymes stable and Tylenol level normalized Poison control signed off. S/p NAC - Psych/OB drug screen pending, so far negative. - Zofran for nausea and vomiting. - Psych consulted (4) Nutrition, metabolism, and development symptoms ICD Codes: R63.8 - Other symptoms and signs concerning food and fluid intake Status: Acute Plan: IV normal saline at maintenance Regular diet Electrolytes currently normal, monitor DVT ppx: MICHA/SCDs (Kailey Matos MD R1) Problem Qualifiers (1) : Qualified Codes: Z3A.01 - Less than 8 weeks gestation of (2) Suicidal deliberate poisoning: Qualified Codes: T65.92XA - Toxic effect of unspecified substance, intentional self-harm, initial encounter (3) Acetaminophen overdose: Qualified Codes: T39.1X2A - Poisoning by 4-aminophenol derivatives, intentional self-harm, initial encounter Kailey Matos MD R1 Jul 06, 2017 10:03 Aubree Zamorano MD Jul 07, 2017 08:53
[2017-07-06] MEDS ORDERED: PROPOFOL 200 MG/20 ML AMP IV ONE (12:00)
[2017-07-06] MEDS ORDERED: ONDANSETRON HCL 4 MG/2 ML VIAL IV PUSH ONE (12:00)
[2017-07-06] MEDS ORDERED: LACTATED RINGER'S 1000 ML INJ 1,000 ML IV ONE (12:00)
[2017-07-06] MEDS ORDERED: KETOROLAC TROMETHAMINE 60 MG/2 ML (IM) VIAL IM ONE (12:00)
[2017-07-06 13:17] LABS: HEMATOCRIT 32.3 % (35.0-46.0); MEAN CELL VOLUME 80.3 FL (80.0-100.0); MEAN CORPUSCULAR HEMOGLOBIN 27.1 PG (27.0-34.0); MEAN CORPUSCULAR HGB CONC 33.8 % (32.0-36.0); PLATELET COUNT 246 TH/MM3 (150-450); RED BLOOD COUNT 4.03 MIL/MM3 (4.00-5.30); REVIEW FLAG FINAL; WHITE BLOOD COUNT 6.7 TH/MM3 (4.0-11.0)
[2017-07-06 13:49] LABS: BICARBONATE 25.4 MEQ/L (21.0-32.0); POTASSIUM 3.3 MEQ/L (3.5-5.1)
[2017-07-06] MEDS: SODIUM CHLOR 0.9% 1000 ML INJ 1,000 ML IV SCH (14:36)
[2017-07-07] VITALS (7 sets, daily range): BP systolic 100–127; BP diastolic 50–66; PULSE 69–94; RESP 16–18; TEMP 97.5–98.7; O2SAT 97–100
[2017-07-07] MEDS: SODIUM CHLOR 0.9% 1000 ML INJ 1,000 ML IV SCH ×2 (00:36→10:36)
[2017-07-07] MEDS: CHLORHEXIDINE GLUCONATE 2 % 1 PACK (2 CLOTHS)(taper/protocol) TOPICAL SCH (04:00)
[2017-07-07 06:15] LABS: HEMATOCRIT 33.1 % (35.0-46.0); MEAN CELL VOLUME 82.2 FL (80.0-100.0); MEAN CORPUSCULAR HEMOGLOBIN 26.9 PG (27.0-34.0); MEAN CORPUSCULAR HGB CONC 32.7 % (32.0-36.0); PLATELET COUNT 244 TH/MM3 (150-450); RED BLOOD COUNT 4.02 MIL/MM3 (4.00-5.30); RED CELL DISTRIBUTION WIDTH 14.1 % (11.6-17.2); REVIEW FLAG FINAL; WHITE BLOOD COUNT 6.6 TH/MM3 (4.0-11.0)
[2017-07-07 06:52] LABS: BICARBONATE 26.3 MEQ/L (21.0-32.0); POTASSIUM 3.7 MEQ/L (3.5-5.1)
[2017-07-07] MEDS: DOCUSATE SODIUM 50 MG/SENNA 8.6 MG TAB PO SCH (09:00)
[2017-07-07] MEDS: SODIUM CHLORIDE 0.9% FLUSH 10 ML FLUSH IV FLUSH SCH (10:43)
--- NOTE | 2017-07-07 14:27 | HHI.DCPOC ---
Discharge Care Plan Diagnosis: (1) Acetaminophen overdose (2) as incidental finding (3) Missed (4) Suicidal deliberate poisoning Goals to Promote Your Health * To prevent worsening of your condition and complications * To maintain your health at the optimal level Directions to Meet Your Goals Take your medications as prescribed Follow your dietary instruction Follow activity as directed Keep your appointments as scheduled Take your immunizations and boosters as scheduled If your symptoms worsen call your PCP, if no PCP go to Urgent Care Center or Emergency Room Smoking is Dangerous to Your Health. Avoid second hand smoke Call the 24-hour hour crisis hotline for domestic abuse at Kailey Matos MD R1 Jul 07, 2017 14:27
--- NOTE | 2017-07-07 16:54 | HHI.FPPN ---
Subjective Remarks Patient states that she is doing well this morning. No abdominal pain or vaginal bleeding after D&C procedure yesterday. She is not happy about being transferred to psychiatry inpatient. No fevers or chills, no chest pain, no shortness of breath, no nausea or vomiting, no diarrhea or constipation. No SI/ HI. Also talked to her about control options. She says she is interested in getting an IUD. Would like to get an appointment set up with the family medicine clinic. (Kailey Matos MD R1) Objective Vitals Vital Signs Date Time Temp Pulse Resp B/P (MAP) Pulse Ox O2 Delivery O2 Flow Rate FiO2 07/07/17 13:07 97 Room Air 07/07/17 12:47 75 07/07/17 12:00 98.4 84 16 127/66 (86) 97 07/07/17 11:41 100 21 07/07/17 08:00 97.7 71 16 114/56 (75) 100 07/07/17 04:00 Room Air 07/07/17 04:00 97.5 69 18 100/50 (67) 98 07/07/17 00:00 Room Air 07/07/17 00:00 98.0 69 16 107/51 (69) 98 07/06/17 22:08 98 21 07/06/17 20:00 98.5 80 16 107/49 (68) 99 07/06/17 20:00 Room Air 07/06/17 20:00 72 I/O 07/06/17 07/06/17 07/06/17 07/07/17 07/07/17 07/07/17 06:59 14:59 22:59 06:59 14:59 22:59 Intake Total 240 ml 300 ml 240 ml 240 ml Output Total 10 ml Balance 240 ml 290 ml 240 ml 240 ml Intake Oral 240 ml 240 ml 240 ml Other 300 ml Output Estimated Blood Loss 10 ml # Voids 3 1 2 # Bowel Movements 0 0 0 (Kailey Matos MD R1) Result Diagram: 07/07/1742007/07/17420 Objective Remarks GENERAL: Well-nourished, well-developed patient. Laying in bed. CARDIOVASCULAR: Regular rate and rhythm without murmurs, gallops, or rubs. RESPIRATORY: Breath sounds equal bilaterally. No accessory muscle use. GASTROINTESTINAL: Abdomen soft, no tenderness, nondistended. EXTREMITIES: No cyanosis, or edema. Non-tender NEUROLOGICAL: Awake, alert. Non-focal. PSYCH: Mood is euthymic. No SI or HI. Normal speech Procedures D&C 07-06-17 (Kailey Matos MD R1) A/P Assessment and Plan 22 year old presents after suicidal attempt after taking two bottles of acetaminophen Discharge Planning Medically stable, transfer to inpatient psychiatry (Kailey Matos MD R1) Attending Attestation Patient seen and examined. Case reviewed and discussed with the resident team Agree with plan of care as discussed with me and documented in the resident note. (Aubree Zamorano MD) Problem List: (1) ICD Codes: Z34.90 - Encounter for supervision of normal , unspecified , unspecified trimester Status: Resolved Plan: Urine test positive with HCG quant of 10,531. Bedside transvaginal ultrasound showing gestational sac but with no pole, which is concerning for spontaneous . HCGs: 39528-->9024-->9616->5696 -OB consulted-appreciate recs -Repeat ultrasound showed gestational sac measuring 5 weeks and 4 days. No evidence of pole. Stable from previous US on 07-03. -Diagnosed with missed -D&C performed under general anesthesia yesterday (2) Suicidal deliberate poisoning ICD Codes: T65.92XA - Toxic effect of unspecified substance, intentional self- harm, initial encounter Status: Acute Plan: Second suicide attempt within a week period with Tylenol overdose each time. Has significant depression recently, and having arguments with her mother and her baby's father. - Consult psychiatry, appreciate recs * Patient at great risk for self-harm * When patient is medically stable, contact the psychiatrist fire prevention engineer for admission to the psychiatric service. - Currently under [place] Act - Case management consult for outpatient treatment options - 1:1 sitter (3) Acetaminophen overdose ICD Codes: T39.1X1A - Poisoning by 4-Aminophenol derivatives, accidental ( unintentional), initial encounter Status: Resolved Plan: Patient took two bottles of extra strength Tylenol also took 10 acetaminophen a week ago, both times with suicidal intent. Liver enzymes stable and Tylenol level normalized Poison control signed off. S/p NAC - Psych/OB drug screen pending, so far negative. - Zofran for nausea and vomiting. - Psych consulted (4) Nutrition, metabolism, and development symptoms ICD Codes: R63.8 - Other symptoms and signs concerning food and fluid intake Status: Acute Plan: IV normal saline at maintenance Regular diet Electrolytes currently normal, monitor DVT ppx: MICHA/SCDs (Kailey Matos MD R1) Problem Qualifiers (1) : Qualified Codes: Z3A.01 - Less than 8 weeks gestation of (2) Suicidal deliberate poisoning: Qualified Codes: T65.92XA - Toxic effect of unspecified substance, intentional self-harm, initial encounter (3) Acetaminophen overdose: Qualified Codes: T39.1X2A - Poisoning by 4-aminophenol derivatives, intentional self-harm, initial encounter Kailey Matos MD R1 Jul 07, 2017 16:54 Aubree Zamorano MD Jul 08, 2017 15:11
--- NOTE | 2017-07-07 16:55 | HHI.DS ---
Discharge Summary Admission Date Jul 03, 2017 at 15:42 Discharge Date: Jul 07, 2017 Admitting Diagnosis Tylenol Overdose/Suicidal (1) Plan: Urine test positive with HCG quant of 10,531. Bedside transvaginal ultrasound showing gestational sac but with no pole, which is concerning for spontaneous . HCGs: 58588-->9024-->9616->5696 -OB consulted-appreciate recs -Repeat ultrasound showed gestational sac measuring 5 weeks and 4 days. No evidence of pole. Stable from previous US on 07-03. -Diagnosed with missed -D&C performed under general anesthesia yesterday ICD Codes: Z34.90 - Encounter for supervision of normal , unspecified , unspecified trimester Status: Resolved (2) Suicidal deliberate poisoning Plan: Second suicide attempt within a week period with Tylenol overdose each time. Has significant depression recently, and having arguments with her mother and her baby's father. - Consult psychiatry, appreciate recs * Patient at great risk for self-harm * When patient is medically stable, contact the psychiatrist infection preventionist for admission to the psychiatric service. - Currently under Luna Act - Case management consult for outpatient treatment options - 1:1 sitter ICD Codes: T65.92XA - Toxic effect of unspecified substance, intentional self- harm, initial encounter Status: Acute (3) Acetaminophen overdose Diagnosis: Principal Plan: Patient took two bottles of extra strength Tylenol also took 10 acetaminophen a week ago, both times with suicidal intent. Liver enzymes stable and Tylenol level normalized Poison control signed off. S/p NAC - Psych/OB drug screen pending, so far negative. - Zofran for nausea and vomiting. - Psych consulted ICD Codes: T39.1X1A - Poisoning by 4-Aminophenol derivatives, accidental ( unintentional), initial encounter Status: Resolved (4) Nutrition, metabolism, and development symptoms Plan: IV normal saline at maintenance Regular diet Electrolytes currently normal, monitor DVT ppx: MICHA/SCDs ICD Codes: R63.8 - Other symptoms and signs concerning food and fluid intake Status: Acute Consultants OB hospitalist Psychiatry Procedures D&C 07-06-17 Brief History 22 year old female presents to the emergency department after taking two full bottles of (she believes) Tylenol Extra Strength at 11 AM this morning. She states the pills in one bottle were red and blue. She states she is pretty sure at least one bottle was Tylenol Extra Strength and that it was 40# of 500 mg pills. Her intent was to kill herself. The provoking event was an argument with her mother followed by an argument with her baby's father. This is her second suicide attempt, with the first being a week ago when she took 10 Tylenol pills. Her mother found her down with the empty bottles. She reports feeling depressed lately and states "I've just been going through too much". Of note, urine test in the ED is positive. HCG quant is currently pending. Bedside ultrasound is pending. Her last baby is 4 months old, so deductively she would be less than 4 months. She is currently having vaginal bleeding, the amount of a period. She is uncertain if she is passing tissue or clots. Her LMP before that was May by her report. She is a with an elective 1 year ago. Her only symptoms currently is nausea, vomiting, and headache. She also has lower abdominal crampy pain. She has no blurry vision, shortness of breath, chest pain, palpitations, or leg swelling. CBC/BMP: 07/07/17 0421 07/07/17 0421 Significant Findings Laboratory Tests Test 07/05/17 06:42 07/05/17 20:46 07/06/17 13:00 07/07/17 04:21 Hemoglobin 11.1 GM/DL (11.6-15.3) 10.4 GM/DL (11.6-15.3) 10.9 GM/DL (11.6-15.3) 10.8 GM/DL (11.6-15.3) Hematocrit 33.8 % (35.0-46.0) 32.7 % (35.0-46.0) 32.3 % (35.0-46.0) 33.1 % (35.0-46.0) Mean Corpuscular Hemoglobin 26.7 PG (27.0-34.0) 26.0 PG (27.0-34.0) 26.9 PG (27.0-34.0) Blood Urea Nitrogen 4 MG/DL (7-18) Creatinine 0.48 MG/DL (0.50-1.00) Total Protein 5.7 GM/DL (6.4-8.2) Albumin 2.7 GM/DL (3.4-5.0) Calcium Level 7.8 MG/DL (8.5-10.1) 8.3 MG/DL (8.5-10.1) 8.0 MG/DL (8.5-10.1) Aspartate Amino Transf (AST/SGOT) 11 U/L (15-37) Chloride Level 109 MEQ/L (98-107) Human Chorionic Gonadotropin, Quant 9616 MIU/ML (0-5) 5696 MIU/ML (0-5) Monocytes (%) (Auto) 14.4 % (0.0-8.0) Monocytes # (Auto) 1.0 TH/MM3 (0-0.9) Potassium Level 3.3 MEQ/L (3.5-5.1) PE at Discharge GENERAL: Well-nourished, well-developed patient. Laying in bed. CARDIOVASCULAR: Regular rate and rhythm without murmurs, gallops, or rubs. RESPIRATORY: Breath sounds equal bilaterally. No accessory muscle use. GASTROINTESTINAL: Abdomen soft, no tenderness, nondistended. EXTREMITIES: No cyanosis, or edema. Non-tender NEUROLOGICAL: Awake, alert. Non-focal. PSYCH: Mood is euthymic. No SI or HI. Normal speech Hospital Course Ms. Stark is a 22-year-old female with no significant past medical history who presented with Tylenol overdose. She took 2 bottles of Tylenol while at home after fights with her mother and boyfriend in order to try to commit suicide. This was the second time she tried to commit suicide in 1 week. Upon admission she was Luna acted and started on N-acetylcysteine protocol which brought her Tylenol levels from 200.4 to 2.7 after 3 doses. She was also found to be upon admission with a beta hCG of 9024. She had been bleeding vaginally for about a week which indicated a possible missed . Levels were trended and found to be dropping. A D&C was performed by Dr. Herman , an OB hospitalist, on 07/06. Psychiatry evaluated her and determined that once she was medically cleared she should be transferred to inpatient psychiatry. She is being discharged in stable condition to inpatient psychiatry on 07/07/17. Pt Condition on Discharge: Stable Discharge Disposition: Disc to Psych Care Fac Discharge Instructions DIET: Follow Instructions for: As Tolerated, No Restrictions Activities you can perform: Pelvic Rest Medication Profile: No Active Prescriptions or Reported Meds Kailey Matos MD R1 Jul 07, 2017 16:55
--- NOTE | 2017-07-08 10:13 | MP ---
cc: WILIAN HERMAN M.D. DATE OF SURGERY 07/06/2017 PROCEDURE Dilatation and curettage with suction curette. PREOPERATIVE DIAGNOSIS Missed . POSTOPERATIVE DIAGNOSIS Missed . SURGEON Dr. Wilian Herman ANESTHESIA General. COMPLICATIONS None. FINDINGS Products of conception in a 10-week sized uterus. PROCEDURE IN DETAIL After informed consent the patient was taken to the operating room where she was placed under general anesthesia, placed in the [facility]. Time-out was taken. After adequate anesthesia was assured and time-out was taken identifying the patient, the procedure and all equipment was available, a speculum was placed in the vagina, the cervix grasped with a single-tooth tenaculum. The cervix was already opened to accommodate a 10-mm dilator. The uterus was sounded to 10 cm and a 8-mm suction curette was passed to the fundus. All products of conception were evacuated. Sharp curette was passed in all four quadrants. Suction curette was passed one last time. All products of conception were removed from the uterus. The patient did very well. She was having minimal bleeding. She was awakened and taken to the recovery room in stable condition. MD ADIS Massey/ELIZA /8:32 AM /10:05 AM
[2017-07-09 08:27] LABS: BATH SALTS (MDPV) UR NEG (NEG); ECSTASY (MDMA) UR NEG (NEG); GABAPENTIN UR NEG (NEG); HEROIN (6-ACETYLMORPHINE) UR NEG (NEG); HYDROMORPHONE U NEG (NEG); K2 SPICE UR NEG (NEG); OBMETHADONE UR NEG (NEG); PHENCYCLIDINE URINE NEG (NEG)
== END 2017-07-07 15:55 | DRG 983 ==
LOC: NEPE 13:36 → NEDA 15:42 → HIMN 18:25 → N04A 07-04 23:50
PROVIDERS: ADMIT Family Medicine; ATTEND Family Medicine
PROC: 10D17ZZ Extraction of Products of Conception, Retained, Via Natural or Artificial Opening (ICD-10-PCS; principal; 2017-07-06 08:01)
DX: T39.1X2A Poisoning by 4-Aminophenol derivatives, intentional self-harm, initial encounter (principal); F32.9 Major depressive disorder, single episode, unspecified; O02.1 Missed abortion; O99.340 Other mental disorders complicating pregnancy, unspecified trimester; O21.9 Vomiting of pregnancy, unspecified; Z3A.01 Less than 8 weeks gestation of pregnancy; O26.20 Pregnancy care for patient with recurrent pregnancy loss, unspecified trimester
CPT/HCPCS: 71010; 76801; 76817; 80048; 80053; 80307; 81001; 82948; 83930; 84702; 84703; 85025; 85027; 85610; 85730; 86850; 86900; 86901; 87641; 88305; 93005; 93971; 96365; 96375; G0481; J0132; J1644; J1885; J2250; J2405; J2590; J3010; J7030; J7060; J7070; J7120; P9612

== ENCOUNTER 2017-07-07 16:05 | Inpatient (IN) | payer OTHER ==
[~2017-07-07] VITALS: Ht 162.6 cm; Wt 23.2 kg
[2017-07-07 15:45] VITALS: BP 121/66; PULSE 97; RESP 20; TEMP 97; O2SAT 99
[2017-07-07] MEDS ORDERED: ALUMINUM/MAGNESIUM/SIMETH 30 ML CUP PO PRN (20:00)
[2017-07-07] MEDS ORDERED: ACETAMINOPHEN 325 MG TAB PO PRN (20:00)
[2017-07-07] MEDS ORDERED: diphenhydrAMINE HCL 50 MG CAP - HS PRN PO (20:00)
[2017-07-07] MEDS ORDERED: MAGNESIUM HYDROXIDE SUSP 30 ML CUP PO PRN (20:00)
[2017-07-07] MEDS ORDERED: LORazepam 2 MG/ML VIAL IM PRN (20:00)
[2017-07-07] MEDS ORDERED: diphenhydrAMINE HCL 50 MG/ML VIAL IM PRN (20:00)
[2017-07-07] MEDS ORDERED: diphenhydrAMINE HCL 50 MG/ML VIAL - HS PRN IM (20:00)
[2017-07-07] MEDS ORDERED: LORazepam 1 MG TAB PO PRN (20:00)
[2017-07-08 06:03] VITALS: BP 102/58; PULSE 66; RESP 18; TEMP 98.9; O2SAT 100
--- NOTE | 2017-07-08 09:50 | HHI.HP ---
Provisional Diagnosis Admission Date Jul 07, 2017 at 16:05 [place] I. 1. Adjustment disorder with disturbance of emotions and conduct [place] II. Deferred Certification of Person's Competence To Provide Express and Informed Consent I have personally examined Della Stark , a person being served at [facility] on, Jul 08, 2017 09:42. Express and informed consent means consent voluntarily given in writing, by a competent person, after sufficient explanation and disclosure of the subject matter involved to enable the person to make a knowing and willful decision without any element of force, fraud, deceit, duress, or other form of constraint or coercion. This person is 18 years of age or older, is not now known to be incompetent to consent to treatment with a guardian advocate, and does not have a health care surrogate or proxy currently making medical treatment decisions. I have found this person to be one of the following: [] Competent to provide express and informed consent, as defined above, for voluntary admission to this facility and is competent to provide express and informed consent for treatment. He/she has the consistent capacity to make well reasoned, willful, and knowing decisions concerning his or her medical or mental health treatment. The person fully and consistently understands the purpose of the admission for examination/placement and is fully capable of personally exercising all rights assured under [place] [] Incompetent to provide express and informed consent to voluntary admission, and this is incompetent to provide express and informed consent to treatment. The person must be transferred to involuntary status and a petition for a guardian advocate filed with the Circuit Court. [x] Refusing to provide express and informed consent to voluntary admission but is competent to provide express and informed consent for treatment. The person must be discharged or transferred to involuntary status. Form shall be completed within 24 hours of a person's arrival at the receiving facility and filed in the clinical record of each person: 1. Admitted on a voluntary basis 2. Permitted to provide express and informed consent to his/her own treatment 3. Allowed to transfer from involuntary to voluntary status 4. Prior to permitting a person to consent to his or her own treatment after having been previously found incompetent to consent to treatment. History of Present Illness Capacity: Has Capacity (to consent for medications) HPI Ms. Stark is a 22 year-old female with no known psychiatric history who presents under a Luna Act following APAP overdose. Initial Tylenol level was 200.4. Patient was medically admitted for management of this issue and was seen in consultation by Dr. Schaeffer. Patient subsequently underwent a D&C as she was at the time of the overdose, although it appears this may not have been a viable to begin with. EMR reviewed. No prior psychiatric contact within our system. There is what appears to be a suicide note on the chart, which I have reviewed. Patient seen and examined with nurse. Chart reviewed. Patient apparently tried to elope from the medical hospital with her child before being brought down to psych. Case discussed with nurse. On my examination today, patient reports that she made the overdose following an argument with her boyfriend about infidelity. She waited until boyfriend left and then overdosed on "a bottle or two" of APAP. Intent was to . She did hesitate somewhat between handfuls of pills but continued toward this goal. She now says that argument with boyfriend was a "stupid reason" to try to end her life. She describes her overdose as "selfish." However, it is only with repeated attempts at questioning now that she denies suicidal ideation now, saying that she wants to live for her child and to go to school. Affect is irritable, somewhat tearful. Mood "ok." No hypomanic/manic symptoms. No psychotic symptoms: denies audiovisual hallucinations, and I can elicit no delusional beliefs. Tends to minimize psychiatric symptoms generally and is quite discharge focused. Remainder of the psychiatric ROS is negative. No physical complaints at this time. Past psychiatric history: The patient denies a history of psychiatric diagnosis. She denies a history of inpatient or outpatient psychiatric treatment. There is some suggestion in the chart that the patient may have had another recent overdose, although the patient insists that she took too much of a hypnotic 2 weeks ago accidentally, and the goal of doing so was simply to get some sleep. Review of Systems Except as stated in HPI: all other systems reviewed are Neg Past Psych History Psychological trauma history Patient denies any history of trauma Violence risk - others (6 mos) Lower imminent risk. Denies homicidal ideation. No known history of violence. Violence risk - self (6 mos) Concern for elevated risk. Status post recent serious suicide attempt. Possible antecedent suicide attempt. Denies any previous history of self-harm however. No family history of suicide per patient. Denies any access to guns or firearms. Substance Abuse History Drugs/Alcohol past 12 months Patient denies any abuse of drugs or alcohol. Past Family Social History Coded Allergies: No Known Allergies (Unverified , 07/03/17) Past Medical History Patient denies any medical problems prior to her overdose. No Active Prescriptions or Reported Meds Current Medications Medications (Trade) Dose Ordered Sig/Gray Route Start Time Stop Time Status Last Admin (Ativan) 1 mg Q6H PRN PO 07/07/17 20:00 (Ativan Inj) 1 mg Q6H PRN IM 07/07/17 20:00 (Benadryl) 50 mg Q6H PRN PO 07/07/17 19:45 (Benadryl Inj) 50 mg Q6H PRN IM 07/07/17 20:00 (Benadryl) 50 mg HS PRN PO 07/07/17 20:00 (Benadryl Inj) 50 mg HS PRN IM 07/07/17 20:00 (Tylenol) 650 mg Q4H PRN PO 07/07/17 20:00 (Milk Of Magnesia Liq) 30 ml DAILY PRN PO 07/07/17 20:00 (Mag-Al Plus Susp Liq) 30 ml Q6H PRN PO 07/07/17 20:00 Family History Patient denies any family history of mental illness. Denies any family history of suicide. Social History Patient has been with her boyfriend for the past year. She is in school at [employer] She also works at [employer]. She has a 4-month-old son and reports that [facility] has already been involved in the case. She denies any or legal history. She denies any access to guns or firearms. Denies any uatsdin or spiritual beliefs. Patient's Strengths (min. 2) In a monitored setting. Verbally fluent. Physical Exam Physical exam was completed by hospitalist prior to transfer to the inpatient psychiatric unit. On my examination today, the patient appears to be in no acute physical distress. No motor abnormalities noted. Labs and vitals reviewed: Vital Signs Vital Signs Date Time Temp Pulse Resp B/P (MAP) Pulse Ox O2 Delivery O2 Flow Rate FiO2 07/08/17 06:03 98.9 66 18 102/58 73 100 Lab Results Item Value Date Time White Blood Count 6.6 TH/MM3 07/07/17 0421 Hemoglobin 10.8 GM/DL L 07/07/17 0421 Platelet Count 244 TH/MM3 07/07/17 0421 Sodium Level 139 MEQ/L 07/08/17 1216 Potassium Level 3.6 MEQ/L 07/08/17 1216 Chloride Level 105 MEQ/L 07/08/17 1216 Carbon Dioxide Level 22.0 MEQ/L 07/08/17 1216 Anion Gap 12 MEQ/L 07/08/17 1216 Blood Urea Nitrogen 11 MG/DL 07/08/17 1216 Creatinine 0.65 MG/DL 07/08/17 1216 Random Glucose 65 MG/DL L 07/08/17 1216 Aspartate Amino Transf (AST/SGOT) 11 U/L L 07/05/17 0642 Alanine Aminotransferase (ALT/SGPT) 12 U/L 07/05/17 0642 Alkaline Phosphatase 45 U/L 07/05/17 0642 Acetaminophen Level 200.4 MCG/ML *H 07/03/17 1406 Acetaminophen Level 2.7 MCG/ML L 07/04/17 1624 Extended urine toxicology pending. Mental Status Examination Patient is in hospital gown. She is fairly well groomed and maintaining basic hygiene. She is awake and alert and oriented to person and hospital at least. No motor abnormalities noted. Speech is within normal limits for rate, tone and volume. Language and fund of knowledge average. Focus and concentration intact. Memory grossly intact on clinical exam. Mood is described as okay and affect is somewhat restricted and dysphoric. Thought process linear. No loosening of associations. No delusions elicited. Denies audiovisual hallucinations. Denies suicidal or homicidal ideation, but it is unclear that she is reliable to contract for safety. Insight and judgment seem poor. Assessment & Plan Problem List: (1) Adjustment disorder with mixed disturbance of emotions and conduct ICD Codes: F43.25 - Adjustment disorder with mixed disturbance of emotions and conduct Status: Acute Assessment & Plan This is a 22-year-old female with psychiatric history as detailed above who presents in transfer from the medical floor under a Luna act. The patient is status post a serious Tylenol overdose. The patient maintains that this overdose was driven by an argument with her boyfriend regarding infidelity, however there are some signs of heightened lethality including the patient waiting till likelihood of rescue was lower and also the fact of the suicide note. Patient also displays some signs of increased impulsivity that may confer risk for ongoing self-harm, such as trying to elope from the hospital with her child for being brought down to inpatient psychiatry. My suspicion is that the patient's overdose will indeed prove to be part of an adjustment reaction, but given the circumstances of the case I think it is most prudent to observe the patient on the inpatient unit for safety. Admit inpatient. Patient is declining to consent for voluntary psychiatric hospitalization. Involuntary status. I completed first opinion. Consult for second opinion. Patient retains capacity to consent for medications. No scheduled psychotropics at this time pending further observation. Ativan as needed for moderate to severe anxiety and Benadryl as needed for less severe anxiety, insomnia or EPS. Check TSH. Consult to hospitalist to continue to follow from medical floor. Vitals every shift. Counselor to see. I have recommended obtaining collateral today, but patient does not want to involve family/friends at all in the case. We likely ultimately will be required to obtain collateral over her objection to allow for accurate risk stratification and safety planning, but I would like to try again to do so with her consent prior to unilaterally initiating contact. Elopement precautions. Disposition planning. Estimated length of stay: 7-9 days. Discharge Planning Pending outcome of observation Request HC Surrog/Guard Advoc?: No Hernán Chopra MD Jul 08, 2017 09:50
[2017-07-08 13:15] LABS: ANION GAP 12 MEQ/L (5-15); CHLORIDE 105 MEQ/L (98-107); GLOMERULAR FILTRATION RATE 139 ML/MIN (>89); POTASSIUM 3.6 MEQ/L (3.5-5.1); SODIUM (NA) 139 MEQ/L (136-145)
[2017-07-08 13:26] LABS: HDL CHOLESTEROL 73.9 MG/DL (40.0-60.0); LDL CHOLESTEROL 95 MG/DL (0-99)
[2017-07-08 13:30] LABS: BLOOD UREA NITROGEN 11 MG/DL (7-18)
[2017-07-08 15:41] LABS: HEMOGLOBIN A1a 0.7 %; HEMOGLOBIN A1b 0.8 %; HEMOGLOBIN Ao 86.2 %; HEMOGLOBIN F 1.1 %; HEMOGLOBIN LA1C 1.6 %; HEMOGLOBIN P3 3.1 %
--- NOTE | 2017-07-08 16:12 | PD.PSY.CON ---
Provisional Diagnosis Admission Date Jul 07, 2017 at 16:05 [place] I. 1. Adjustment disorder with disturbance of emotions and conduct [place] II. Deferred History of Present Illness Service Psychiatry Consult Requested By Dr. Chopra Reason for Consult Second opinion Luna act Primary Care Physician No Primary Care Physician HPI Ms. Stark is a 22 year-old female with no known psychiatric history who presents under a Luna Act following APAP overdose. Initial Tylenol level was 200.4. Patient was medically admitted for management of this issue and was seen in consultation by Dr. Schaeffer. Patient subsequently underwent a D&C as she was at the time of the overdose, although it appears this may not have been a viable to begin with. EMR reviewed. No prior psychiatric contact within our system. There is what appears to be a suicide note on the chart, which I have reviewed. Patient seen and examined with nurse. Chart reviewed. Patient apparently tried to elope from the medical hospital with her child before being brought down to psych. Case discussed with nurse. On my examination today, patient reports that she made the overdose following an argument with her boyfriend about infidelity. She waited until boyfriend left and then overdosed on "a bottle or two" of APAP. Intent was to . She did hesitate somewhat between handfuls of pills but continued toward this goal. She now says that argument with boyfriend was a "stupid reason" to try to end her life. She describes her overdose as "selfish." However, it is only with repeated attempts at questioning now that she denies suicidal ideation now, saying that she wants to live for her child and to go to school. Affect is irritable, somewhat tearful. Mood "ok." No hypomanic/manic symptoms. No psychotic symptoms: denies audiovisual hallucinations, and I can elicit no delusional beliefs. Tends to minimize psychiatric symptoms generally and is quite discharge focused. Remainder of the psychiatric ROS is negative. No physical complaints at this time. Past psychiatric history: The patient denies a history of psychiatric diagnosis. She denies a history of inpatient or outpatient psychiatric treatment. There is some suggestion in the chart that the patient may have had another recent overdose, although the patient insists that she took too much of a hypnotic 2 weeks ago accidentally, and the goal of doing so was simply to get some sleep. 07/08/17 Above note dictated by Dr. chopra reviewed and agreed with. Patient seen by me with for staff in day room. Patient showing markedly incongruent mood and affect related to the severity of her overdose. Acknowledging she wanted to kill herself. With her lack of insight and incongruent of affect of her patient is further observation and assessment. I feel there is still as her risk for doing something impulsive and destructive to herself. Dr. Suzy chopra SI first opinion petition supporting [employer] act. I agree. Patient meets criteria for involuntary psychiatric hospitalization of the Luna act. I will sign [email or web address] petition supporting [employer] act Past Family Social History Coded Allergies: No Known Allergies (Unverified , 07/03/17) No Active Prescriptions or Reported Meds Current Medications Medications (Trade) Dose Ordered Sig/Gray Route Start Time Stop Time Status Last Admin (Ativan) 1 mg Q6H PRN PO 07/07/17 20:00 (Ativan Inj) 1 mg Q6H PRN IM 07/07/17 20:00 (Benadryl) 50 mg Q6H PRN PO 07/07/17 19:45 (Benadryl Inj) 50 mg Q6H PRN IM 07/07/17 20:00 (Benadryl) 50 mg HS PRN PO 07/07/17 20:00 (Tylenol) 650 mg Q4H PRN PO 07/07/17 20:00 (Milk Of Magnesia Liq) 30 ml DAILY PRN PO 07/07/17 20:00 (Mag-Al Plus Susp Liq) 30 ml Q6H PRN PO 07/07/17 20:00 Patient's Strengths (min. 2) In a monitored setting. Verbally fluent. Physical Exam Vital Signs Vital Signs Date Time Temp Pulse Resp B/P (MAP) Pulse Ox O2 Delivery O2 Flow Rate FiO2 07/08/17 06:03 98.9 66 18 102/58 (73) 100 Lab Results Test 07/08/17 12:16 Blood Urea Nitrogen 11 MG/DL Creatinine 0.65 MG/DL Random Glucose 65 MG/DL Calcium Level 8.7 MG/DL Sodium Level 139 MEQ/L Potassium Level 3.6 MEQ/L Chloride Level 105 MEQ/L Carbon Dioxide Level 22.0 MEQ/L Anion Gap 12 MEQ/L Estimat Glomerular Filtration Rate 139 ML/MIN Hemoglobin A1c 5.2 % Triglycerides Level 73 MG/DL Cholesterol Level 183 MG/DL LDL Cholesterol 95 MG/DL HDL Cholesterol 73.9 MG/DL Cholesterol/HDL Ratio 2.47 RATIO Mental Status Examination Alert oriented slender Afro-[place] female superficially calm cooperative though with markedly incongruent affect and mood related to the situation. Appearance Claiming the Speech: Unremarkable Orientation: x3 Memory: Unremarkable Thought Process: Linear Thought Content: Unremarkable Language Fair Fund of Knowledge Fair Hallucination Type: None (denies) Attention and Concentration: Other (poor) Suicidal Ideation: No (denies at this time) Previous Suicide Attempts: No (denies to me) Homicidal Ideation: No Previous Homicide Attempts: No Insight: Poor Judgment: Poor Affect: Other (good range and intensity though incongruent) Mood: Euthymic (though incongruent) Motor Activity: Normal gait Assessment & Plan Problem List: (1) Adjustment disorder with mixed disturbance of emotions and conduct ICD Codes: F43.25 - Adjustment disorder with mixed disturbance of emotions and conduct Status: Acute Assessment & Plan Estimated LOS: days Request HC Surrog/Guard Advoc?: No Jaya Maria MD Jul 08, 2017 16:12
[2017-07-08 18:09] VITALS: BP 101/65; PULSE 79; RESP 16; TEMP 97.1; O2SAT 100
[2017-07-08] MEDS: diphenhydrAMINE HCL 50 MG CAP PO PRN (21:59)
[2017-07-09 06:20] VITALS: BP 88/52; PULSE 77; RESP 20; TEMP 98.2; O2SAT 98
--- NOTE | 2017-07-09 10:57 | HHI.PYPN ---
Subjective Remarks Patient seen and examined with counselor and nurse. Chart reviewed. Case discussed with nursing staff. On my examination today, the patient continues to tend to minimize her overdose and subsequent behavior including trying to elope from the hospital. She says that her goal in trying to leave the hospital was to go "lock down my house" before entering the psychiatric unit. We discussed issues with impulsivity and possible pharmacotherapeutic approaches to help manage this. Some cluster B personality traits noted. Denies suicidal ideation. More agreeable to having us obtain collateral from her mother, and the counselor will call for collateral. No physical complaints. Review of Systems Except as stated in HPI: all other systems reviewed are Neg Objective Alert: Yes [place]: Person, Place, Date, Situation Mood: Calm Affect: Appropriate Memory Intact: Comment (not formally assessed) Hallucinations: Other (no AVH) Delusions: No Delusion Type: Other (no delusions) Suicidal: Ideation (denies SI) Homicidal: Ideation (no HI) Insight/Judgment poor Remarks No motor abnormalities noted. Thought process linear. Grooming and hygiene good. Labs Test 07/08/17 12:16 Blood Urea Nitrogen 11 MG/DL Creatinine 0.65 MG/DL Random Glucose 65 MG/DL Calcium Level 8.7 MG/DL Sodium Level 139 MEQ/L Potassium Level 3.6 MEQ/L Chloride Level 105 MEQ/L Carbon Dioxide Level 22.0 MEQ/L Anion Gap 12 MEQ/L Estimat Glomerular Filtration Rate 139 ML/MIN Hemoglobin A1c 5.2 % Triglycerides Level 73 MG/DL Cholesterol Level 183 MG/DL LDL Cholesterol 95 MG/DL HDL Cholesterol 73.9 MG/DL Cholesterol/HDL Ratio 2.47 RATIO Thyroid Stimulating Hormone 3rd Gen 0.467 uIU/ML Labs reviewed. Vitals/IOs Vital Signs Date Time Temp Pulse Resp B/P (MAP) Pulse Ox O2 Delivery O2 Flow Rate FiO2 07/09/17 06:20 98.2 77 20 88/52 (83) 98 Assessment & Plan Problem List: (1) Adjustment disorder with mixed disturbance of emotions and conduct ICD Codes: F43.25 - Adjustment disorder with mixed disturbance of emotions and conduct Status: Acute Assessment & Plan Initiate Abilify 5 mg daily to assist with management of impulsivity and affective dysregulation. R/B/A d/w pt. Counselor to call for collateral. Continue to monitor on the inpatient unit; transfer to 2600 when a bed is available. Continue other medications and care as ordered. Justification for Cont. Inpt. Medication change in process. Monitoring for impairments in safety, none noted so far. Discharge Planning Anticipate discharge by the end of the week barring clinical deterioration. Request HC Surrog/Guard Advoc?: No Hernán Chopra MD Jul 09, 2017 10:57
[2017-07-09] MEDS: ARIPiprazole 5 MG TAB PO SCH (15:30)
[2017-07-09 16:05] VITALS: BP_SYST 103; BP_SYST 88; BP_DIAS 52; BP_DIAS 59; PULSE 67; PULSE 77; RESP 18; RESP 20; TEMP 98.1; TEMP 98.2; O2SAT 98
[2017-07-09 18:33] VITALS: BP 135/68; PULSE 76; RESP 18; TEMP 98.2; O2SAT 98
[2017-07-09] MEDS: diphenhydrAMINE HCL 50 MG CAP PO PRN (20:40)
[2017-07-10 06:08] VITALS: BP 96/52; PULSE 76; RESP 16; TEMP 97.8; O2SAT 100
[2017-07-10] MEDS: ARIPiprazole 5 MG TAB PO SCH (09:00)
[2017-07-10] MEDS ORDERED: ARIP1TAB11 PO (13:41)
--- NOTE | 2017-07-10 13:41 | HHI.DS ---
Psychiatry Discharge Summary Inpatient Psychiatric care?: Yes Advance Directive: No Reason Not Provided: DOSE NOT HAVE ONE Mental Health AdvanceDirective: No Health Care Proxy: No Admission Admission Date Jul 07, 2017 at 16:05 Admission Diagnosis: (1) Adjustment disorder with mixed disturbance of emotions and conduct ICD Code: F43.25 - Adjustment disorder with mixed disturbance of emotions and conduct Brief History Ms. Stark is a 22 year-old female with no known psychiatric history who presents under a [place] Act following APAP overdose. Initial Tylenol level was 200.4. Patient was medically admitted for management of this issue and was seen in consultation by Dr. Schaeffer. Patient subsequently underwent a D&C as she was at the time of the overdose, although it appears this may not have been a viable to begin with. EMR reviewed. No prior psychiatric contact within our system. There is what appears to be a suicide note on the chart, which I have reviewed. Patient seen and examined with nurse. Chart reviewed. Patient apparently tried to elope from the medical hospital with her child before being brought down to psych. Case discussed with nurse. On my examination today, patient reports that she made the overdose following an argument with her boyfriend about infidelity. She waited until boyfriend left and then overdosed on "a bottle or two" of APAP. Intent was to . She did hesitate somewhat between handfuls of pills but continued toward this goal. She now says that argument with boyfriend was a "stupid reason" to try to end her life. She describes her overdose as "selfish." However, it is only with repeated attempts at questioning now that she denies suicidal ideation now, saying that she wants to live for her child and to go to school. Affect is irritable, somewhat tearful. Mood "ok." No hypomanic/manic symptoms. No psychotic symptoms: denies audiovisual hallucinations, and I can elicit no delusional beliefs. Tends to minimize psychiatric symptoms generally and is quite discharge focused. Remainder of the psychiatric ROS is negative. No physical complaints at this time. Past psychiatric history: The patient denies a history of psychiatric diagnosis. She denies a history of inpatient or outpatient psychiatric treatment. There is some suggestion in the chart that the patient may have had another recent overdose, although the patient insists that she took too much of a hypnotic 2 weeks ago accidentally, and the goal of doing so was simply to get some sleep. Tobacco Use In Past 30 Days: No Tobacco Past 30 Days Alcohol Use: Never Hospital Course Patient was admitted to a locked, inpatient psychiatric unit. Appropriate precautions were in place throughout patient's hospital stay. Patient was seen and examined daily on the unit by psychiatry and also visited by counselor. Psychotropic medications were adjusted. Patient tolerated medications well without side effects. There was no evidence of any suicidality or homicidality on the inpatient unit. Patient remained in good behavioral control and was medication compliant. She was able to be transferred from the high acuity to the low acuity inpatient unit without incident. On the day of discharge: Patient seen and examined with nurse. Chart reviewed. Case discussed with counselor and with nursing staff. No behavioral issues overnight. On my examination today, the patient is requesting discharge from the inpatient psychiatric unit. She denies any suicidal or homicidal ideation, intent or plan on direct questioning and contracts for safety. She says that she wants to live for herself and her child. She says that she plans to use meditation to help manage stress. Her plan is to return home with her mother. Patient denies any issues with low mood or elevated mood, nor can I elicit any depressive or hypomanic/manic symptoms at this time. She denies hopelessness or worthlessness. Sleep and appetite are fair. She does continue to display some cluster B personality traits. She denies side effects from medications besides some mild sleepiness. I have reviewed the side effects of Abilify and suggested that she might try taking this medication at if she finds it too sedating during the day. No physical complaints. With the patient's permission , I have discussed her case with the patient's mother, Della Stark, over the phone. Della is comfortable having the patient return to her home today. I supervisor counseling and guidance mother to secure the home of all potential means of harm to self/others including but not limited to knives, guns, medications. I have discussed with mother the use of voluntary ED psych eval, BA, and ex parte as means to get patient to urgent psychiatric care should the situation require. Weighing the acute, chronic, and protective factors and based on the available evidence, I service department manager to a reasonable degree of medical certainty that the patient is at low imminent risk of harm to self or others from a mental illness as defined under the [place] act and her level of function is adequate for outpatient care. The patient no longer meets criteria for involuntary psychiatric hospitalization and will be discharged today and to her mother's care. Patient is to follow-up psychiatrically as arranged by counselor. I counseled the patient to abstain from substances of abuse as substance use can increase risk for self-harm. I have counseled the patient regarding warning signs for need to return to the psychiatric emergency room as part of the general safety plan. Results Blood Pressure 96 / 52 Vital Signs Date Time Temp Pulse Resp B/P (MAP) Pulse Ox O2 Delivery O2 Flow Rate FiO2 07/10/17 06:08 97.8 76 16 96/52 (67) 100 Laboratory Tests Test 07/08/17 12:16 Random Glucose 65 MG/DL (74-106) HDL Cholesterol 73.9 MG/DL (40.0-60.0) Laboratory Results Test 07/08/17 12:16 Cholesterol Level 183 MG/DL (120-200) HDL Cholesterol 73.9 MG/DL (40.0-60.0) Hemoglobin A1c 5.2 % (4.3-6.0) LDL Cholesterol 95 MG/DL (0-99) Triglycerides Level 73 MG/DL (42-150) Summary of Procedures None done Imaging None done Pending results at discharge: No Medications # of Antipsychotic meds at D/C: 1 Approp Antipsych med options 1 - Minimum of three failed multiple trials of monotherapy. 2 - Documented plan to taper to monotherapy due to previous use of multiple meds OR cross-taper in progress at D/C. 3 - Documentation of augmentation of Clozapine. 4 - Justification other than those listed in allowable values 1-3, document here : Discharge Discharge Date: Jul 10, 2017 Discharge Diagnosis: (1) Adjustment disorder with mixed disturbance of emotions and conduct Diagnosis: Principal ICD Code: F43.25 - Adjustment disorder with mixed disturbance of emotions and conduct Status: Resolved Mental Status Exam at Disch Patient is in hospital attire. Patient is well groomed. Patient is awake and alert and oriented person and hospital at least. No evidence of delirium. No motor abnormalities appreciated. Speech is within normal limits for rate, tone , volume. Language and fund of knowledge average. Focus and concentration are intact. Memory intact on clinical exam. Mood is good. Affect is full and reactive. Thought process linear. No delusional material elicited. Denies audiovisual hallucinations and does not appear internally stimulated. Denies suicidal or homicidal ideation, intent, or plan and contracts for safety. Insight and judgment seem fair to poor. Pt Condition on Discharge: Stable Discharge Disposition: Discharge Home Discharge Instructions Diet Instructions: As Tolerated, No Restrictions Activities you can perform: Weight Bearing as [place] Scheduled Appointment: as per counselor's notes New Medications: Aripiprazole (Aripiprazole) 5 Mg Tab 5 MG PO DAILY for Mental Health for 15 Days, TAB 1 Refill Discharge Time > 30 minutes Discharge/Advance Care Plan Health Problems: (1) Adjustment disorder with mixed disturbance of emotions and conduct Goals to promote your health * To prevent worsening of your condition and complications * To maintain your health at the optimal level Directions to meet your goals Take your medications as prescribed Follow your dietary instruction Follow activity as directed Keep your appointments as scheduled Take your immunizations and boosters as scheduled If your symptoms worsen call your PCP, if no PCP go to Urgent Care Center or Emergency Room For 02/06 questions related to your inpatient stay or results of tests pending at discharge, please contact Dr. Hernán Chopra at Smoking is Dangerous to Your Health. Avoid second hand smoking Hernán Chopra MD Jul 10, 2017 13:41
== END 2017-07-10 15:05 | disposition home or self-care (01) | DRG 882 ==
LOC: H270 16:05 → H260 07-09 17:44
PROVIDERS: ADMIT Psychiatry & Neurology Psychiatry; ATTEND Psychiatry & Neurology Psychiatry
DX: F43.25 Adjustment disorder with mixed disturbance of emotions and conduct (principal)
CPT/HCPCS: 80048; 80061; 83036; 84443; Q0163

== ENCOUNTER → 2017-12-09 | Outpatient (CLI) | payer MEDICAID | LOC: HPND 11:59 | PROVIDERS: ATTEND Obstetrics & Gynecology | DX: O09.212 Supervision of pregnancy with history of pre-term labor, second trimester (principal) | CPT/HCPCS: 76805; 76817 ==

== ENCOUNTER → 2018-01-06 | Outpatient (CLI) | payer MEDICAID | LOC: HPND 11:13 | PROVIDERS: ATTEND Obstetrics & Gynecology | DX: O09.212 Supervision of pregnancy with history of pre-term labor, second trimester (principal); O44.03 Complete placenta previa NOS or without hemorrhage, third trimester; O35.1XX0 Maternal care for (suspected) chromosomal abnormality in fetus, not applicable or unspecified | CPT/HCPCS: 76816; 76817 ==